=== PATIENT | female | born 1985 | race Caucasian/White ===

== ENCOUNTER 2016-12-22 07:46 | Day surgery (SDC) | payer OTHER ==
[2016-12-17 10:28] VITALS: BMI 35.4
[~2016-12-22 07:46] MED LIST: LACTATED RINGERS 1,000 ML IV SCH; LIDOCAINE 1% 20 ML VIAL (10MG/ML) FOR IV START INTRADERMA PRN
[2016-12-22 08:04] VITALS: RESP 16; TEMP 98.6
[2016-12-22] MEDS ORDERED: PROPOFOL 10 MG/ML 20 ML VIAL IV ONE (08:54)
[2016-12-22] MEDS ORDERED: LIDOCAINE 1% INJ 10MG/ML (20 ML MDV) ONE (08:54)
--- NOTE | 2016-12-22 09:37 | P.PCN ---
Date of Procedure: 12/22/16 Procedure(s) Performed: Procedure: 1. Esophagogastroduodenoscopy and biopsy. 2. Total colonoscopy. Preoperative diagnosis: Abdominal pain and change in bowel habits and family history of colon cancer in her father. Postoperative diagnosis: 1. Very small sliding hiatal hernia with no obvious esophagitis or complicated reflux disease. 2. Mild antral gastritis. 3. Normal colon and terminal ileum. Preparation: HalfLytely prep. Sedation: Was provided by anesthesia. Brief clinical history: The patient is a 51-year-old female who is scheduled for this evaluation because of issues with abdominal pain and postprandial pain and vomiting as well as change in bowels with constipation and hard time having bowel movements. There is family history of colon cancer in her father. Procedure: With the patient on her left lateral decubitus position and after informed consent and adequate sedation, I passed the Olympus-GIF 160 video upper endoscope through the cricopharyngeus down the esophagus. GE junction was around 39 cm from the incisors and was a very small sliding hiatal hernia less than 1 cm. There was no erosions, ulcers, strictures or Witt's esophagus. The endoscope was then passed into the stomach which was insufflated with air and inspected in detail including the retroflex view in the cardia. There was some mottling and erythema in the antrum but no ulcers or erosions. Pyloric channel, duodenal bulb, post bulbar area and descending duodenum appeared within normal limits. Because of her symptoms, I obtained biopsies from the duodenum, antrum and esophagus then the endoscope was withdrawn and I proceeded to do colonoscopy. Perianal area did not show any fissures or fistulas. There were no masses felt on digital rectal examination. The Olympus CFQ 160L video colonoscope was then inserted in the rectum in the usual fashion and advanced to the cecum. I intubated the ileocecal valve and examined the terminal ileum. Terminal ileum and colon appeared healthy with no edema, erythema, friability, ulceration, exudation or spontaneous bleeding. No polyps or tumors were seen or any obvious diverticular disease or other pathology. I retroflexed endoscope in the rectum before the endoscope was withdrawn. The patient tolerated the procedure well. Plan: The patient was reassured. Discussed dietary measures. Will await pathology results. She will follow-up with you as planned and further plans can be made based on her course and biopsy results.
[2016-12-22 10:18] VITALS: BP 101/61; PULSE 67
== END 2016-12-22 10:14 | disposition home or self-care (01) ==
LOC: ORWHC2ENDO 07:46
DX: K59.00 Constipation, unspecified (principal); Z80.0 Family history of malignant neoplasm of digestive organs; K21.0 Gastro-esophageal reflux disease with esophagitis; K29.50 Unspecified chronic gastritis without bleeding; K44.9 Diaphragmatic hernia without obstruction or gangrene; M19.90 Unspecified osteoarthritis, unspecified site; Z79.1 Long term (current) use of non-steroidal anti-inflammatories (NSAID); Z88.8 Allergy status to other drugs, medicaments and biological substances
CPT/HCPCS: 81025; 88305; 88342; 45378; 43239; J2001; J2704; 99153

== ENCOUNTER → 2017-04-10 | Outpatient (CLI) | payer OTHER ==
--- NOTE | 2017-04-10 10:58 | XR ---
EXAMINATION TYPE: XR Hip Bilateral Complete DATE OF EXAM: 04/10/2017 10:31 AM CLINICAL HISTORY: pain TECHNIQUE: AP and frogleg views of the bilateral hips are obtained. COMPARISON: None. FINDINGS: There is no acute fracture/dislocation evident. Small focus of sclerosis involving the ri ght ischium. This may reflect a bone island. Consider further evaluation with nuclear medicine bone s can. The joint space appears within normal limits. The overlying soft tissue appears unremarkable. IMPRESSION: 1. There is no acute fracture or dislocation. Focus of sclerosis right ischium. See above. ICD 10 NO FRACTURE, INITIAL EVALUATION
--- NOTE | 2017-04-10 11:28 | XR ---
EXAMINATION TYPE: XR sacroiliac joint comp BILAT DATE OF EXAM ORDERED: 04/10/2017 10:31 AM HISTORY: M25.559 hip pain. COMPARISON: None. FINDINGS: The sacroiliac joints are unremarkable. There is no significant sclerosis. There is no ero sions. There may be some minimal hypertrophic change bilaterally. IMPRESSION: NO ACUTE OSSEOUS LESION. I CANNOT EXCLUDE SOME EARLY DEGENERATIVE CHANGE.
== END | disposition home or self-care (01) ==
LOC: RADXRMAIN 10:14
PROVIDERS: ATTEND Psychiatry & Neurology Pain Medicine
DX: M89.8X8 Other specified disorders of bone, other site (principal); M25.559 Pain in unspecified hip
CPT/HCPCS: 72202; 73521

== ENCOUNTER 2017-04-29 08:37 | Emergency (ER) | payer OTHER ==
[2017-04-29 08:49] VITALS: RESP 18
[2017-04-29] MEDS ORDERED: KETOROLAC 30 MG/ML 1 ML VIAL IVP STA (09:07)
--- NOTE | 2017-04-29 09:10 | ED ---
Abdominal Pain HPI - General Chief Complaint: Abdominal Pain Stated Complaint: LOW ABDOMINAL PAIN, NAUSEA X 2 DAYS Time Seen by Provider: 04/29/17 08:56 Source: patient, RN notes reviewed Mode of arrival: ambulatory Limitations: no limitations - History of Present Illness Initial Comments: Patient 31-year-old female presents emergency room for evaluation of left lower quadrant pain. Patient states the pain began a few days ago. Patient does states she has history of ovarian cysts. Patient states that she has a history of right ovarian removal. Patient states pain is worse today. Patient states that 9 out of 10 constant pain that is worse with movement. Patient has any pain or burning during urination, trouble urinating or blood in urine. Patient denies history of STDs. Patient denies any chance of being . Patient also states she has history cholecystectomy. Patient denies any other history of abdominal surgeries. Patient states she's been nauseous. Patient denies vomiting, diarrhea or constipation. Patient denies fevers or chills. Patient denies headache or dizziness. Patient denies chest pain or shortness of breath. Patient states her last menstrual cycle was about a month ago. - Related Data Previous Rx's Medication Instructions Recorded Ibuprofen [Motrin] 600 mg PO Q6HR PRN #20 tab 04/29/17 Allergies Allergy/AdvReac Type Severity Reaction Status Date / Time adhesive tape Allergy Rash/Hives Verified 04/29/17 08:49 Review of Systems ROS Statement: Those systems with pertinent positive or pertinent negative responses have been documented in the HPI. ROS Other: All systems not noted in ROS Statement are negative. Past Medical History Past Medical History: GERD/Reflux, Osteoarthritis (OA) Additional Past Medical History / Comment(s): migraines, bowel obstruction, frequent UTI's, History of Any Multi-Drug Resistant Organisms: None Reported Past Surgical History: Cholecystectomy Additional Past Surgical History / Comment(s): oopherectomy Past Anesthesia/Blood Transfusion Reactions: No Reported Reaction Past Psychological History: No Psychological Hx Reported Smoking Status: Former smoker Past Alcohol Use History: None Reported Additional Past Alcohol Use History / Comment(s): quit smoking age 17, Past Drug Use History: None Reported - Past Family History Father Family Medical History: Cancer General Exam - General Exam Comments Initial Comments: Sitting in exam room, no acute distress. Limitations: no limitations General appearance: alert, in no apparent distress Head exam: Present: atraumatic, normocephalic, normal inspection Eye exam: Present: normal appearance ENT exam: Present: normal exam Neck exam: Present: normal inspection Respiratory exam: Present: normal lung sounds bilaterally. Absent: respiratory distress Cardiovascular Exam: Present: regular rate, normal rhythm, normal heart sounds GI/Abdominal exam: Present: soft, tenderness (Left lower quadrant), normal bowel sounds. Absent: distended, guarding, rebound, rigid Extremities exam: Present: normal inspection Back exam: Present: normal inspection Neurological exam: Present: alert, oriented X3, CN II-XII intact, normal gait Psychiatric exam: Present: normal affect, normal mood Skin exam: Present: warm, dry, intact, normal color. Absent: rash Course Vital Signs 04/29/17 04/29/17 08:45 12:33 Temperature 98.2 F 97.8 F Pulse Rate 64 59 L Respiratory 18 18 Rate Blood Pressure 118/77 96/51 O2 Sat by Pulse 100 100 Oximetry Medical Decision Making - Medical Decision Making Patient is a 31-year-old female presents to emergency room for evaluation of abdominal pain. Patient states symptoms are improved after medications. Ultrasound shows no abnormal findings. No finding of ovarian torsion or ovarian cyst. Advised patient to follow-up with MANUFACTURING PROCESS ENGINEER. Patient states she understands everything that was discussed with her. Return parameters discussed. Case discussed with Dr. Guzmán. - Lab Data Result diagrams: 04/29/17 09:18 04/29/17 09:18 Lab Results 04/29/17 04/29/17 04/29/17 Range/Units 09:18 09:18 09:20 WBC 5.2 (3.8-10.6) k/uL RBC 4.49 (3.80-5.40) m/uL Hgb 13.7 (11.4-16.0) gm/dL Hct 40.5 (34.0-46.0) % MCV 90.3 (80.0-100.0) fL MCH 30.6 (25.0-35.0) pg MCHC 33.9 (31.0-37.0) g/dL RDW 13.5 (11.5-15.5) % Plt Count 212 (150-450) k/uL Neutrophils % 65 % Lymphocytes % 27 % Monocytes % 6 % Eosinophils % 0 % Basophils % 0 % Neutrophils # 3.4 (1.3-7.7) k/uL Lymphocytes # 1.4 (1.0-4.8) k/uL Monocytes # 0.3 (0-1.0) k/uL Eosinophils # 0.0 (0-0.7) k/uL Basophils # 0.0 (0-0.2) k/uL Sodium 140 (137-145) mmol/L Potassium 4.5 (3.5-5.1) mmol/L Chloride 104 (98-107) mmol/L Carbon Dioxide 24 (22-30) mmol/L Anion Gap 12 mmol/L BUN 10 (7-17) mg/dL Creatinine 0.67 (0.52-1.04) mg/dL Est GFR (MDRD) Af Amer >60 (>60 ml/min/1.73 sqM) Est GFR (MDRD) Non-Af >60 (>60 ml/min/1.73 sqM) Glucose 92 (74-99) mg/dL Calcium 9.5 (8.4-10.2) mg/dL Total Bilirubin 0.6 (0.2-1.3) mg/dL AST 19 (14-36) U/L ALT 21 (9-52) U/L Alkaline Phosphatase 50 (38-126) U/L Total Protein 7.6 (6.3-8.2) g/dL Albumin 4.6 (3.5-5.0) g/dL Amylase 55 (30-110) U/L Lipase 117 (23-300) U/L Urine Color Light Yellow Urine Appearance Cloudy H (Clear) Urine pH 7.0 (5.0-8.0) Ur Specific [place] 1.011 (1.001-1.035) Urine Protein Negative (Negative) Urine Glucose (UA) Negative (Negative) Urine Ketones Negative (Negative) Urine Blood Negative (Negative) Urine Nitrite Negative (Negative) Urine Bilirubin Negative (Negative) Urine Urobilinogen <2.0 (<2.0) mg/dL Ur Leukocyte Esterase Negative (Negative) Urine WBC 1 (0-5) /hpf Ur Squamous Epith Cells 5 H (0-4) /hpf Urine HCG, Qual (Not Detectd) 04/29/17 Range/Units 09:20 WBC (3.8-10.6) k/uL RBC (3.80-5.40) m/uL Hgb (11.4-16.0) gm/dL Hct (34.0-46.0) % MCV (80.0-100.0) fL MCH (25.0-35.0) pg MCHC (31.0-37.0) g/dL RDW (11.5-15.5) % Plt Count (150-450) k/uL Neutrophils % % Lymphocytes % % Monocytes % % Eosinophils % % Basophils % % Neutrophils # (1.3-7.7) k/uL Lymphocytes # (1.0-4.8) k/uL Monocytes # (0-1.0) k/uL Eosinophils # (0-0.7) k/uL Basophils # (0-0.2) k/uL Sodium (137-145) mmol/L Potassium (3.5-5.1) mmol/L Chloride (98-107) mmol/L Carbon Dioxide (22-30) mmol/L Anion Gap mmol/L BUN (7-17) mg/dL Creatinine (0.52-1.04) mg/dL Est GFR (MDRD) Af Amer (>60 ml/min/1.73 sqM) Est GFR (MDRD) Non-Af (>60 ml/min/1.73 sqM) Glucose (74-99) mg/dL Calcium (8.4-10.2) mg/dL Total Bilirubin (0.2-1.3) mg/dL AST (14-36) U/L ALT (9-52) U/L Alkaline Phosphatase (38-126) U/L Total Protein (6.3-8.2) g/dL Albumin (3.5-5.0) g/dL Amylase (30-110) U/L Lipase (23-300) U/L Urine Color Urine Appearance (Clear) Urine pH (5.0-8.0) Ur Specific [place] (1.001-1.035) Urine Protein (Negative) Urine Glucose (UA) (Negative) Urine Ketones (Negative) Urine Blood (Negative) Urine Nitrite (Negative) Urine Bilirubin (Negative) Urine Urobilinogen (<2.0) mg/dL Ur Leukocyte Esterase (Negative) Urine WBC (0-5) /hpf Ur Squamous Epith Cells (0-4) /hpf Urine HCG, Qual Not Detected (Not Detectd) - Radiology Data Radiology results: report reviewed, image reviewed Disposition Clinical Impression: Abdominal pain Disposition: HOME SELF-CARE Condition: Good Instructions: Abdominal Pain (ED) Additional Instructions: Take ibuprofen as needed for pain. Please follow-up with MANUFACTURING PROCESS ENGINEER for further evaluation. If any new symptom arises or symptoms worsen, return to ER as soon as possible. Prescriptions: Ibuprofen [Motrin] 600 mg PO Q6HR PRN #20 tab PRN Reason: Pain Referrals: Marlyn Ramirez MD [Primary Care Provider] - 1-2 days Time of Disposition: 12:40
[2017-04-29 09:35] LABS: Basophils % (A) 0 %; CHCM 33.4; Eosinophils % (A) 0 %; HCT 40.5 % (34.0-46.0); HDW 2.74; HGB 13.7 gm/dL (11.4-16.0); Luc % (Auto) 2; Lymphocytes # (A) 1.4 k/uL (1.0-4.8); Lymphocytes % (A) 27 %; MCH 30.6 pg (25.0-35.0); MCHC 33.9 g/dL (31.0-37.0); MCV 90.3 fL (80.0-100.0); Mean Platelet Volume 6.5; Monocytes # (A) 0.3 k/uL (0-1.0); Monocytes % (A) 6 %; Neutrophils # (A) 3.4 k/uL (1.3-7.7); Neutrophils % (A) 65 %; RBC 4.49 m/uL (3.80-5.40); RDW 13.5 % (11.5-15.5); WBC 5.2 k/uL (3.8-10.6); WBC (Perox) 5.11
[2017-04-29 09:42] LABS: Appearance,Urine Cloudy (Clear); Bilirubin,Urine Negative (Negative); Glucose,Urine (UA) Negative (Negative); Ketones,Urine Negative (Negative); Leukocyte Esterase,Urine Negative (Negative); Nitrite,Urine Negative (Negative); Particle Count 2930; Protein,Urine Negative (Negative); Specific Gravity,Urine 1.011 (1.001-1.035); Squamous Epithelial Cell,Urine 5 /hpf (0-4); UA Billing (MACRO vs. MICRO) MICRO; Urobilinogen,Urine <2.0 mg/dL (<2.0); WBC,Urine 1 /hpf (0-5)
[2017-04-29 09:50] LABS: ALT 21 U/L (9-52); AST 19 U/L (14-36); Alkaline Phosphatase 50 U/L (38-126); Amylase 55 U/L (30-110); Anion Gap 12 mmol/L; Blood Urea Nitrogen 10 mg/dL (7-17); Calcium 9.5 mg/dL (8.4-10.2); Carbon Dioxide 24 mmol/L (22-30); Chloride 104 mmol/L (98-107); Glucose 92 mg/dL (74-99); Non-African American GFR(MDRD) >60 (>60 ml/min/1.73 sqM); Potassium 4.5 mmol/L (3.5-5.1); Sodium 140 mmol/L (137-145); Total Bilirubin 0.6 mg/dL (0.2-1.3); Total Protein 7.6 g/dL (6.3-8.2)
--- NOTE | 2017-04-29 11:36 | US ---
EXAMINATION TYPE: US transvaginal DATE OF EXAM: 04/29/2017 COMPARISON: 05/09/2014 CLINICAL HISTORY: LLQ Pain x 3 days. Patient reports right Oophorectomy TECHNIQUE: Transvaginal (TV) Date of LMP: 03/28/2017 EXAM MEASUREMENTS: Uterus: 7.6 x 4.2 x 6.6 cm Endometrial Stripe: 1.2 cm Right Ovary: Surgically absent Left Ovary: 4.9 x 2.7 x 3.4 cm 1. Uterus: Retroverted 2. Endometrium: small amount of fluid fundal endometrium 3. Right Ovary: Surgically absent 4. Left Ovary: follicles Spectral, color and waveform doppler imaging shows good arterial and venous flow within the left ov daniele; there is no evidence for ovarian torsion. 5. Bilateral Adnexa: wnl 6. Posterior cul-de-sac: no free fluid retroverted uterus with small amount of fluid in fundal endometrium, IMPRESSION: 1. Small amount of fluid in the endometrial canal near the fundus.
[2017-04-29 12:34] VITALS: BP 96/51; PULSE 59; TEMP 97.8
--- NOTE | 2017-04-29 15:58 | XR ---
EXAMINATION TYPE: XR KUB DATE OF EXAM: 04/29/2017 COMPARISON: NONE INDICATION: Pain lower abdomen TECHNIQUE: Single view abdomen upright position FINDINGS: There is a normal bowel gas pattern. Psoas margins are normal. No organomegaly is present. No free air is evident. No suspicious differential air-fluid levels are present. No mass effect is ev ident. Cholecystectomy clips are in the right upper quadrant. IMPRESSION: 1. Unremarkable Abdomen
== END 2017-04-29 13:11 | disposition home or self-care (01) ==
LOC: EC 08:37
DX: R10.32 Left lower quadrant pain (principal); R11.0 Nausea; K21.9 Gastro-esophageal reflux disease without esophagitis; Z87.891 Personal history of nicotine dependence; Z91.048 Other nonmedicinal substance allergy status; Z90.49 Acquired absence of other specified parts of digestive tract
CPT/HCPCS: 36415; 80053; 82150; 83690; 85025; 81001; 81025; 74000; 93976; 76830; 99284; 96374; J1885

== ENCOUNTER 2017-06-24 17:30 | Emergency (ER) | payer OTHER ==
[2017-06-24 18:00] LABS: Amorphous Sediment,Urine Occasional /hpf; Appearance,Urine Cloudy (Clear); Bacteria,Urine Occasional /hpf; Bilirubin,Urine Negative (Negative); Glucose,Urine (UA) Negative (Negative); Ketones,Urine 1+ (Negative); Leukocyte Esterase,Urine Negative (Negative); Mucus,Urine Many /hpf; Nitrite,Urine Negative (Negative); PH, Urine 5.5 (5.0-8.0); Particle Count 22403; Protein,Urine 1+ (Negative); RBC,Urine 3 /hpf (0-5); Specific Gravity,Urine 1.025 (1.001-1.035); Squamous Epithelial Cell,Urine 61 /hpf (0-4); UA Billing (MACRO vs. MICRO) MICRO; Urobilinogen,Urine <2.0 mg/dL (<2.0); WBC,Urine 12 /hpf (0-5)
[2017-06-24] MEDS ORDERED: ACETAMINOPHEN TAB 325 MG TAB PO STA (18:05)
[2017-06-24] MEDS ORDERED: METOCLOPRAMIDE 5 MG/ML 2 ML VIAL IVP STA (18:06)
[2017-06-24] MEDS ORDERED: SODIUM CHLORIDE 0.9% 1,000 ML IV ONE (18:06)
--- NOTE | 2017-06-24 18:09 | ED ---
Abdominal Pain HPI - General Chief Complaint: Abdominal Pain Stated Complaint: ABDOMINAL PAIN Time Seen by Provider: 06/24/17 17:40 Source: patient, RN notes reviewed Mode of arrival: ambulatory Limitations: no limitations - History of Present Illness Initial Comments: Patient is a 31-year-old female presents to the emergency room for evaluation left lower quadrant pain. Patient states she's been nauseous every morning and developing left lower quadrant pain for the past week and a half. Patient states her last menstrual cycle was 05/14/2017. patient states she is . Patient states she has a history cholecystectomy and right nephrectomy. Patient states she had a right nephrectomy for large ovarian cyst. Patient denies history of ectopic pregnancies or miscarriages. Patient denies smoking. Patient denies taking oral contraceptives. Patient states she's having 6 out of 10 pain. Patient denies taking anything for pain. Patient states she's having minor burning while urinating. Patient denies vaginal itching or discomfort. Patient denies history of STDs. Patient denies vaginal bleeding. Patient denies chest pain or hortness of breath. Patient denies fevers or chills. Patient denies headache or dizziness. - Related Data Home Medications Medication Instructions Recorded Confirmed Pnv,Calcium 72/Iron/Folic Acid 1 tab PO DAILY 06/24/17 06/24/17 [ Plus Tablet] Allergies Allergy/AdvReac Type Severity Reaction Status Date / Time adhesive tape Allergy Rash/Hives Verified 06/24/17 19:19 Review of Systems ROS Statement: Those systems with pertinent positive or pertinent negative responses have been documented in the HPI. ROS Other: All systems not noted in ROS Statement are negative. Past Medical History Past Medical History: GERD/Reflux, Osteoarthritis (OA) Additional Past Medical History / Comment(s): migraines, bowel obstruction, frequent UTI's, History of Any Multi-Drug Resistant Organisms: None Reported Past Surgical History: Cholecystectomy Additional Past Surgical History / Comment(s): right oopherectomy Past Anesthesia/Blood Transfusion Reactions: No Reported Reaction Past Psychological History: No Psychological Hx Reported Smoking Status: Former smoker Past Alcohol Use History: None Reported Past Drug Use History: None Reported - Past Family History Father Family Medical History: Cancer General Exam - General Exam Comments Initial Comments: laying in exam room, no acute distress. Limitations: no limitations General appearance: alert, in no apparent distress Head exam: Present: atraumatic, normocephalic, normal inspection Eye exam: Present: normal appearance ENT exam: Present: normal exam Neck exam: Present: normal inspection Respiratory exam: Present: normal lung sounds bilaterally. Absent: respiratory distress Cardiovascular Exam: Present: regular rate, normal rhythm, normal heart sounds GI/Abdominal exam: Present: soft, tenderness (LLQ), normal bowel sounds. Absent : distended, guarding, rebound, rigid External exam: Present: normal external exam Speculum exam: Present: vaginal discharge By manual exam: Present: normal by manual exam. Absent: cervical motion tenderness, adnexal tenderness Extremities exam: Present: normal inspection Back exam: Present: normal inspection Neurological exam: Present: alert, oriented X3, CN II-XII intact, normal gait Psychiatric exam: Present: normal affect, normal mood Skin exam: Present: warm, dry, intact, normal color. Absent: rash Course Vital Signs 06/24/17 06/24/17 17:33 20:14 Temperature 99.1 F 98.7 F Pulse Rate 81 76 Respiratory 18 19 Rate Blood Pressure 127/71 121/56 O2 Sat by Pulse 98 99 Oximetry Medical Decision Making - Medical Decision Making Patient is a 31-year-old female presents to the emergency room for evaluation of abdominal pain. Urinalysis positive for . Ultrasound significant for early . Patient has no vaginal bleeding on examination. Patient advised to return for repeat serum beta-hCG. Patient advised follow-up with OB/ RESPIRATORY THERAPY DIRECTOR. Patient states she understands everything that was discussed with her. Return parameters discussed. Case discussed with Dr. Guzmán. - Lab Data Result diagrams: 06/24/17 18:20 06/24/17 18:20 Lab Results 06/24/17 06/24/17 06/24/17 Range/Units 17:37 17:37 18:20 WBC (3.8-10.6) k/uL RBC (3.80-5.40) m/uL Hgb (11.4-16.0) gm/dL Hct (34.0-46.0) % MCV (80.0-100.0) fL MCH (25.0-35.0) pg MCHC (31.0-37.0) g/dL RDW (11.5-15.5) % Plt Count (150-450) k/uL Neutrophils % % Lymphocytes % % Monocytes % % Eosinophils % % Basophils % % Neutrophils # (1.3-7.7) k/uL Lymphocytes # (1.0-4.8) k/uL Monocytes # (0-1.0) k/uL Eosinophils # (0-0.7) k/uL Basophils # (0-0.2) k/uL Sodium (137-145) mmol/L Potassium (3.5-5.1) mmol/L Chloride (98-107) mmol/L Carbon Dioxide (22-30) mmol/L Anion Gap mmol/L BUN (7-17) mg/dL Creatinine (0.52-1.04) mg/dL Est GFR (MDRD) Af Amer (>60 ml/min/1.73 sqM) Est GFR (MDRD) Non-Af (>60 ml/min/1.73 sqM) Glucose (74-99) mg/dL Calcium (8.4-10.2) mg/dL Total Bilirubin (0.2-1.3) mg/dL AST (14-36) U/L ALT (9-52) U/L Alkaline Phosphatase (38-126) U/L Total Protein (6.3-8.2) g/dL Albumin (3.5-5.0) g/dL HCG, Quant mIU/mL Urine Color Yellow Urine Appearance Cloudy H (Clear) Urine pH 5.5 (5.0-8.0) Ur Specific [place] 1.025 (1.001-1.035) Urine Protein 1+ H (Negative) Urine Glucose (UA) Negative (Negative) Urine Ketones 1+ H (Negative) Urine Blood Negative (Negative) Urine Nitrite Negative (Negative) Urine Bilirubin Negative (Negative) Urine Urobilinogen <2.0 (<2.0) mg/dL Ur Leukocyte Esterase Negative (Negative) Urine RBC 3 (0-5) /hpf Urine WBC 12 H (0-5) /hpf Ur Squamous Epith Cells 61 H (0-4) /hpf Amorphous Sediment Occasional H (None) /hpf Urine Bacteria Occasional H (None) /hpf Urine Mucus Many H (None) /hpf Urine HCG, Qual Detected (Not Detectd) Trichomonas Ag (Rapid) (Negative) Blood Type B Positive Blood Type Recheck B Pos 06/24/17 06/24/17 06/24/17 Range/Units 18:20 18:20 18:35 WBC 7.0 (3.8-10.6) k/uL RBC 4.32 (3.80-5.40) m/uL Hgb 13.0 (11.4-16.0) gm/dL Hct 38.3 (34.0-46.0) % MCV 88.8 (80.0-100.0) fL MCH 30.2 (25.0-35.0) pg MCHC 34.0 (31.0-37.0) g/dL RDW 13.9 (11.5-15.5) % Plt Count 262 (150-450) k/uL Neutrophils % 73 % Lymphocytes % 21 % Monocytes % 4 % Eosinophils % 0 % Basophils % 0 % Neutrophils # 5.1 (1.3-7.7) k/uL Lymphocytes # 1.5 (1.0-4.8) k/uL Monocytes # 0.3 (0-1.0) k/uL Eosinophils # 0.0 (0-0.7) k/uL Basophils # 0.0 (0-0.2) k/uL Sodium 140 (137-145) mmol/L Potassium 3.9 (3.5-5.1) mmol/L Chloride 105 (98-107) mmol/L Carbon Dioxide 24 (22-30) mmol/L Anion Gap 11 mmol/L BUN 9 (7-17) mg/dL Creatinine 0.57 (0.52-1.04) mg/dL Est GFR (MDRD) Af Amer >60 (>60 ml/min/1.73 sqM) Est GFR (MDRD) Non-Af >60 (>60 ml/min/1.73 sqM) Glucose 109 H (74-99) mg/dL Calcium 9.2 (8.4-10.2) mg/dL Total Bilirubin 0.6 (0.2-1.3) mg/dL AST 22 (14-36) U/L ALT 34 (9-52) U/L Alkaline Phosphatase 42 (38-126) U/L Total Protein 7.1 (6.3-8.2) g/dL Albumin 4.3 (3.5-5.0) g/dL HCG, Quant 1129.3 mIU/mL Urine Color Urine Appearance (Clear) Urine pH (5.0-8.0) Ur Specific [place] (1.001-1.035) Urine Protein (Negative) Urine Glucose (UA) (Negative) Urine Ketones (Negative) Urine Blood (Negative) Urine Nitrite (Negative) Urine Bilirubin (Negative) Urine Urobilinogen (<2.0) mg/dL Ur Leukocyte Esterase (Negative) Urine RBC (0-5) /hpf Urine WBC (0-5) /hpf Ur Squamous Epith Cells (0-4) /hpf Amorphous Sediment (None) /hpf Urine Bacteria (None) /hpf Urine Mucus (None) /hpf Urine HCG, Qual (Not Detectd) Trichomonas Ag (Rapid) Negative (Negative) Blood Type Blood Type Recheck - Radiology Data Radiology results: report reviewed, image reviewed Disposition Clinical Impression: Abdominal pain affecting Disposition: HOME SELF-CARE Condition: Good Instructions: Abdominal Pain in (ED) Additional Instructions: Please return in 48 hours for repeat serum beta hCG lab draw. Please follow-up with CAREER DEVELOPMENT ENGINEER. If any new symptom arises or symptoms worsen, return to ER as soon as possible. Referrals: Marlyn Ramirez MD [Primary Care Provider] - 1-2 days Azul Edmond DO [Doctor of Osteopathic Medicine] - 1-2 days Time of Disposition: 19:55
[2017-06-24 18:28] LABS: Basophils % (A) 0 %; CH 30.4; CHCM 34.4; Eosinophils % (A) 0 %; HCT 38.3 % (34.0-46.0); HDW 2.87; Luc # (Auto) 0.11; Luc % (Auto) 2; Lymphocytes # (A) 1.5 k/uL (1.0-4.8); Lymphocytes % (A) 21 %; MCH 30.2 pg (25.0-35.0); MCV 88.8 fL (80.0-100.0); Mean Platelet Volume 6.8; Monocytes # (A) 0.3 k/uL (0-1.0); Monocytes % (A) 4 %; Neutrophils # (A) 5.1 k/uL (1.3-7.7); Neutrophils % (A) 73 %; RBC 4.32 m/uL (3.80-5.40); RDW 13.9 % (11.5-15.5); WBC (Perox) 7.15
[2017-06-24 18:52] LABS: ALT 34 U/L (9-52); AST 22 U/L (14-36); Alkaline Phosphatase 42 U/L (38-126); Anion Gap 11 mmol/L; Blood Urea Nitrogen 9 mg/dL (7-17); Calcium 9.2 mg/dL (8.4-10.2); Carbon Dioxide 24 mmol/L (22-30); Chloride 105 mmol/L (98-107); Glucose 109 mg/dL (74-99); Non-African American GFR(MDRD) >60 (>60 ml/min/1.73 sqM); Potassium 3.9 mmol/L (3.5-5.1); Sodium 140 mmol/L (137-145); Total Bilirubin 0.6 mg/dL (0.2-1.3); Total Protein 7.1 g/dL (6.3-8.2)
--- NOTE | 2017-06-24 19:01 | US ---
EXAMINATION TYPE: US OB <=14 wks transvag DATE OF EXAM: 06/24/2017 COMPARISON: NONE CLINICAL HISTORY: LLQ Pain. EXAM PERFORMED: Transvaginal (TV) and Transabdominal (TA) EXAM MEASUREMENTS: GESTATIONAL AGE / DATING Physician Established: Not established Dates by LMP: (5 weeks/6 days) EDC: 02/18/2018 Dates by First Scan: No previous Dates by Current Scan for: No pole or yolk sac visualized MATERNAL ANATOMY Uterus: 7.3 x 4.5 x 5.8 cm Right Ovary: Surgically absent Left Ovary: 4.0 x 2.3 x 2.7 cm Post CDS / Adnexa: Prominent vessels visualized in right adnexa Presence of free fluid: Yes Presence of corpus luteal cyst: Possible corpus luteal cyst on left ovary measuring 2.3 x 2.2 x 1.3 c m Presence of subchorionic bleed: No GESTATION / SURVEY MSD: 1.51 cm (5 weeks/6 days) Yolk Sac (normal less than 6mm): No yolk sac visualized on this exam IUP: No pole or yolk sac seen at this time Date of LMP: 05/14/2017 Beta HcG (if available): Not available at time of exam No pole or yolk sac visualized on today's exam. Only irregular shaped fluid collection visualiz ed within the endometrium measuring 1.3 x 1.0 x 2.2 cm. Possible corpus luteal cyst vs other etiology visualized on left ovary IMPRESSION: Findings may reflect normal early IUP however I cannot exclude ectopic , missed spontaneous or blighted ovum. Follow-up with serial beta hCG and/or ultrasound.
[2017-06-24 19:08] LABS: HCG,Quantitative Serum 1129.3 mIU/mL
[2017-06-24 20:15] VITALS: BP 121/56; PULSE 76; RESP 19; TEMP 98.7
== END 2017-06-24 20:16 | disposition home or self-care (01) ==
LOC: EC 17:30
DX: O99.89 Other specified diseases and conditions complicating pregnancy, childbirth and the puerperium (principal); R10.32 Left lower quadrant pain; R11.0 Nausea; Z3A.01 Less than 8 weeks gestation of pregnancy; Z90.49 Acquired absence of other specified parts of digestive tract; Z90.5 Acquired absence of kidney; Z91.048 Other nonmedicinal substance allergy status; Z79.899 Other long term (current) drug therapy; Z87.891 Personal history of nicotine dependence
CPT/HCPCS: 99284; 96374; 96361 ×2; 36415; 86900; 86901; 80053; 87591; 87491; 85025; 81001; 81025; 84702; 87808; 87070; 76801; 76817; J2765; 87205

== ENCOUNTER 2017-11-21 01:24 | Outpatient (CLI) | payer OTHER ==
[2017-11-21] MEDS ORDERED: ONDANSETRON 4 MG/2 ML VIAL IVP STA (02:05)
[2017-11-21] MEDS ORDERED: LACTATED RINGERS 1,000 ML IV SCH (02:15)
--- NOTE | 2018-02-12 09:10 | P.MSEPDOC ---
Presenting Problems - Arrival Data Date of Arrival on Unit: 11/21/17 Time of Arrival on Unit: 01:24 Mode of Transport: Wheelchair Medical History - Information : 5 Para: 4 Term: 4 : 0 Abortions: Spontaneous or Elective: 0 Number of Living Children: 4 - Gestational Age Gestational Age by SEBLE (wks/days): 26 Weeks and 3 Days Medical Screen Scoring (Post) - Cervical Exam Dilation: Exam Deferred Effacement: Exam Deferred Membranes: Intact - Uterine Contractions Frequency: N/A Duration: N/A Intensity: N/A - Maternal Vital Signs Maternal Temperature: N/A Maternal Blood Pressure: N/A Signs of Preeclampsia: N/A Maternal Respirations: N/A - Pain Assessment Pain Location and Character: Abdomen Pain Scale Used: Numeric (1 - 10) Pain Intensity: 3 Pain Management Goal: 3 Pain Description: *Acute, Tightness Pain Radiation Location: none Pain Frequency: Intermittent Pain Behavior: None Exhibited Effects of Pain: na Non-Pharmacological Interventions: Distraction - Maternal Trauma Maternal Trauma: N/A - Assessment Heart Rate: 145 Heart Rate - NICHD Category: Category I (Normal) = 0 NST: Reactive Position: N/A Station: N/A - Total Score Total Score (Post): 0 - Post Treatment Level of Risk Post Treatment Level of Risk: Low (0-5) Physician Notification (Post) - Physician Notified Physician Notified Date: 11/21/17 Physician Notified Time: 03:53 Physician/Practitioner Notified:: Dr. Edmond Spoke With: Dr. Edmond New Order Received: Yes - Notification Comment Comment: Updated Dr. Edmond on maternal status- pt feeling better and pain in abdomen has decreased, pt not nauseated anymore. Orders for discharge given. Disposition - Disposition OB Disposition: Discharge to home Discharge Date: 11/21/17 Discharge Time: 04:05 I agree with the RN Medical Screening Exam: Yes Risk & Benefit of care provided described in d/c instruction: Yes Diagnosis: UNSPECIFIED ABDOMINAL PAIN
== END 2017-11-21 04:05 | disposition home or self-care (01) ==
LOC: FBPOP 01:24
PROVIDERS: ATTEND Obstetrics & Gynecology Obstetrics
DX: O99.89 Other specified diseases and conditions complicating pregnancy, childbirth and the puerperium (principal); R10.9 Unspecified abdominal pain; Z3A.26 26 weeks gestation of pregnancy
CPT/HCPCS: 96361; 96374; G0463; J2405; 99214

== ENCOUNTER 2017-12-07 20:41 | Outpatient (CLI) | payer OTHER ==
[2017-12-07 21:32] VITALS: BP 111/64; PULSE 80; RESP 18; TEMP 97.2
--- NOTE | 2018-02-22 09:39 | P.MSEPDOC ---
Presenting Problems - Arrival Data Date of Arrival on Unit: 12/07/17 Time of Arrival on Unit: 20:41 Mode of Transport: Wheelchair Medical History - Information : 5 Para: 4 Term: 4 : 0 Abortions: Spontaneous or Elective: 0 Number of Living Children: 4 - Gestational Age Gestational Age by SEBLE (wks/days): 28 Weeks and 2 Days Vital Signs - Temperature Temperature: 97.2 F Temperature Source: Temporal Artery Scan - Pulse Right Pulse Oximetery Pulse Rate: 80 Pulse Assessment Method: Pulse Oximetry - Respirations Respiratory Rate: 18 Oxygen Delivery Method: Room Air O2 Sat by Pulse Oximetry: 98 - Blood Pressure Right Arm Blood Pressure: 111/64 Blood Pressure Mean: 79 Blood Pressure Source: Automatic Cuff Medical Screen Scoring (Post) - Cervical Exam Dilation: 0 cm = 0 Membranes: Intact - Uterine Contractions Frequency: N/A Duration: N/A Intensity: N/A - Maternal Vital Signs Maternal Temperature: N/A Maternal Blood Pressure: N/A Signs of Preeclampsia: N/A Maternal Respirations: N/A - Pain Assessment Pain Location and Character: Abdomen Pain Scale Used: Numeric (1 - 10) Pain Intensity: 3 Pain Management Goal: 2 Pain Description: *Acute, Aching, Cramping, Tightness Pain Radiation Location: none Pain Frequency: Intermittent Pain Duration: 10 Pain Duration Units: Hours Pain Behavior: Vocalization Effects of Pain: none Pain Aggravating Factors: None Pharmacological Interventions: Discuss Pain Med Options Non-Pharmacological Interventions: Reduce Environmental Stimuli - Maternal Trauma Maternal Trauma: N/A - Assessment Heart Rate: 140 Heart Rate - NICHD Category: Category I (Normal) = 0 NST: Reactive Position: N/A Station: N/A - Total Score Total Score (Post): 0 - Post Treatment Level of Risk Post Treatment Level of Risk: Low (0-5) Physician Notification (Post) - Physician Notified Physician Notified Date: 12/07/17 Physician Notified Time: 21:10 Physician/Practitioner Notified:: Feli Spoke With: Feli New Order Received: Yes - Notification Comment Comment: Pt arrived for abdominal pain cramping, tightening, and aching, had intercourse yesterday and some spotting afterwards, cervix closed, no contractions per TOCO or palpation. Pt discharge don pelvic rest and to increase fluids. Disposition - Disposition OB Disposition: Discharge to home Discharge Date: 12/07/17 Discharge Time: 21:24 I agree with the RN Medical Screening Exam: Yes Risk & Benefit of care provided described in d/c instruction: Yes Diagnosis: FALSE LABOR BEFORE 37 COMPLETED WEEKS OF GEST, THIRD TRI
== END 2017-12-07 21:24 | disposition home or self-care (01) ==
LOC: FBPOP 20:41
PROVIDERS: ATTEND Obstetrics & Gynecology Obstetrics
DX: O47.03 False labor before 37 completed weeks of gestation, third trimester (principal); Z3A.28 28 weeks gestation of pregnancy
CPT/HCPCS: 59025; G0463; 99213

== ENCOUNTER 2018-02-05 08:11 | Outpatient (CLI) | payer OTHER ==
[2018-02-05 09:26] VITALS: BP 116/76; PULSE 83; RESP 18; TEMP 97.6
--- NOTE | 2018-02-16 16:48 | P.MSEPDOC ---
Presenting Problems - Arrival Data Date of Arrival on Unit: 02/05/18 Time of Arrival on Unit: 08:25 Mode of Transport: Ambulatory - Complaint OB-Reason for Admission/Chief Complaint: Possible Onset of Labor Comment: C/O increased pressure in pelvic area Medical History - Information : 5 Para: 4 Term: 4 : 0 Abortions: Spontaneous or Elective: 0 Number of Living Children: 4 - Gestational Age Gestational Age by SEBLE (wks/days): 36 Weeks and 6 Days - History Complications: Prior Review of Systems - Review of Systems Constitutional: No problems Breast: No problems ENT: No problems Cardiovascular: No problems Respiratory: No problems Gastrointestinal: No problems Genitourinary: No problems Musculoskeletal: No problems Neurological: No problems Skin: No problems Vital Signs - Temperature Temperature: 97.6 F Temperature Source: Temporal Artery Scan - Pulse Right Brachial Pulse Rate: 83 Pulse Assessment Method: Automatic Cuff - Respirations Respiratory Rate: 18 Oxygen Delivery Method: Room Air O2 Sat by Pulse Oximetry: 95 - Blood Pressure Right Arm Blood Pressure: 116/76 Blood Pressure Mean: 89 Blood Pressure Source: Automatic Cuff Medical Screen Scoring (Pre) - Cervical Exam Dilation: 1-3 cm = 1 - Uterine Contractions Frequency: > or = 36 weeks =2 Duration: N/A Intensity: N/A - Maternal Vital Signs Maternal Temperature: N/A Maternal Blood Pressure: N/A Signs of Preeclampsia: N/A Maternal Respirations: N/A - Pain Assessment Pain Scale Used: Numeric (1 - 10) Pain Intensity: 8 Pain Management Goal: 6 Pain Description: *Acute, Cramping, Pressure Pain Frequency: Intermittent Pain Duration: 6 Pain Duration Units: Minutes Pain Behavior: None Exhibited Pain Aggravating Factors: None - Maternal Trauma Maternal Trauma: N/A - Assessment Baseline FHR: 140 Heart Rate - NICHD Category: Category I (Normal) = 0 NST: Reactive Position: N/A Station: N/A - Total Score Total Score (Pre): 3 - Level of Risk Level of Risk: Low (0-5) Physician Notification (Pre) - Physician Notified Physician Notified Date: 02/05/18 Physician Notified Time: 09:00 Physician/Practitioner Notifed:: Feli Spoke With: Feli New Order Received: Yes - Notification Comment Comment: Observe patient for 1 hour, hydrate and recheck cervix. Medical Screen Scoring (Post) - Cervical Exam Dilation: 1-3 cm = 1 Membranes: Intact - Uterine Contractions Frequency: > 5 minutes apart = 1 Duration: N/A - Maternal Vital Signs Maternal Temperature: N/A Maternal Blood Pressure: N/A Signs of Preeclampsia: N/A Maternal Respirations: N/A - Maternal Trauma Maternal Trauma: N/A - Assessment Heart Rate: 135 Heart Rate - NICHD Category: Category I (Normal) = 0 NST: Reactive Position: N/A Station: N/A - Total Score Total Score (Post): 2 - Post Treatment Level of Risk Post Treatment Level of Risk: Low (0-5) Physician Notification (Post) - Notification Comment Comment: pt home with orders if no cervical change Disposition - Disposition OB Disposition: Discharge to home Discharge Date: 02/05/18 Discharge Time: 10:05 I agree with the RN Medical Screening Exam: Yes Risk & Benefit of care provided described in d/c instruction: Yes Diagnosis: FALSE LABOR AT OR AFTER 37 COMPLETED WEEKS OF GESTATION
== END 2018-02-05 10:05 | disposition home or self-care (01) ==
LOC: FBPOP 08:11
PROVIDERS: ATTEND Obstetrics & Gynecology Obstetrics
DX: O47.1 False labor at or after 37 completed weeks of gestation (principal); Z3A.36 36 weeks gestation of pregnancy
CPT/HCPCS: 59025; G0463; 99213

== ENCOUNTER 2018-02-16 08:12 | Inpatient (IN) | payer OTHER ==
[2018-02-16] MEDS ORDERED: LACTATED RINGERS 1,000 ML IV SCH (10:15)
[2018-02-16] MEDS ORDERED: CITRIC ACID-SODIUM CITRATE 15 ML CUP PO ONE (10:15)
[2018-02-16] MEDS ORDERED: ceFAZolin IN SWFI 2 GM/20 ML SYRINGE IVP ONE (10:15)
--- NOTE | 2018-02-16 10:28 | P.HPOB ---
History of Present Illness H&P Date: 02/16/18 Chief Complaint: IUP @ 39 5/7 weeks active HSV outbreak, undesred fertility This 32 yo at 39%/7 weeks that presents to labor and delivery with c/o contractions q 20mins and pressure. she did tell the nurse that she had an HSV outbreak 2 weeks ago and d/c her valtrex at that time. she now feels like she may be having another outbreak today. she denies LOF, VB and notes good FM. On bloodwork she has a blood type of Past Medical History Past Medical History: GERD/Reflux, Osteoarthritis (OA) Additional Past Medical History / Comment(s): migraines, bowel obstruction, frequent UTI's, History of Any Multi-Drug Resistant Organisms: None Reported Past Surgical History: Cholecystectomy Additional Past Surgical History / Comment(s): right oopherectomy Past Anesthesia/Blood Transfusion Reactions: No Reported Reaction Smoking Status: Never smoker - Past Family History Father Family Medical History: Cancer Medications and Allergies Home Medications Medication Instructions Recorded Confirmed Type No Known Home Medications [No 12/07/17 02/16/18 History Known Home Medications] Allergies Allergy/AdvReac Type Severity Reaction Status Date / Time adhesive tape Allergy Rash/Hives Verified 11/21/17 01:33 Exam Osteopathic Statement: *. No significant issues noted on an osteopathic structural exam other than those noted in the History and Physical/Consult. - Vital Signs Vital signs: Vital Signs Temp Pulse Resp BP Pulse Ox 02/16/18 08:32 97.0 F L 94 18 114/72 97 Intake and Output 02/15/18 02/16/18 02/16/18 22:59 06:59 14:59 Other: Weight 111.13 kg Assessment and Plan (1) Term Current Visit: Yes Status: Acute Code(s): Z34.80 - ENCOUNTER FOR SUPRVSN OF NORMAL , UNSP TRIMESTER SNOMED Code(s): 96952797 (2) HSV (herpes simplex virus) anogenital infection Narrative/Plan: will plan RCS given her active outbreak, this is discussed with the pt. questions are answered, risks reviewed Current Visit: Yes Status: Acute Code(s): A60.9 - ANOGENITAL HERPESVIRAL INFECTION, UNSPECIFIED SNOMED Code(s): 821128029 (3) H/O section Current Visit: Yes Status: Acute Code(s): Z98.891 - HISTORY OF UTERINE SCAR FROM PREVIOUS SURGERY SNOMED Code(s): 200024708
[2018-02-16 10:47] LABS: Basophils % (A) 0 %; Eosinophils % (A) 0 %; HCT 38.2 % (34.0-46.0); HGB 12.7 gm/dL (11.4-16.0); Lymphocytes # (A) 1.7 k/uL (1.0-4.8); Lymphocytes % (A) 20 %; MCH 29.5 pg (25.0-35.0); MCHC 33.2 g/dL (31.0-37.0); MCV 89.1 fL (80.0-100.0); Mean Platelet Volume 7.6; Monocytes # (A) 0.6 k/uL (0-1.0); Monocytes % (A) 8 %; Neutrophils # (A) 5.6 k/uL (1.3-7.7); Neutrophils % (A) 69 %; Platelet Count 223 k/uL (150-450); RBC 4.29 m/uL (3.80-5.40); RDW 13.8 % (11.5-15.5); WBC 8.2 k/uL (3.8-10.6)
[2018-02-16] MEDS ORDERED: ONDANSETRON 4 MG/2 ML VIAL ONE (11:13)
[2018-02-16] MEDS ORDERED: ePHEDrine SULFATE/0.9% NACL/PF 50 MG/5 ML SYRINGE IV ONE (11:13)
[2018-02-16] MEDS ORDERED: OXYTOCIN 10 UNIT/ML 1 ML VIAL ONE (11:13)
[2018-02-16] MEDS ORDERED: NALBUPHINE 10 MG/ML AMPUL ONE (11:13)
[2018-02-16] MEDS ORDERED: MORPHINE SULFATE (PF) 0.3 MG/0.3 ML SYR ONE (11:13)
[2018-02-16] MEDS ORDERED: KETOROLAC 30 MG/ML 1 ML VIAL ONE (11:13)
[2018-02-16 11:42] VITALS: BMI 36.6
[2018-02-16] MEDS ORDERED: ZOLPIDEM 5 MG TAB PO PRN (12:01)
[2018-02-16] MEDS ORDERED: diphenhydrAMINE 50 MG/ML 1 ML VIAL IVP PRN ×2 (12:01→12:39)
[2018-02-16] MEDS ORDERED: METOCLOPRAMIDE 5 MG/ML 2 ML VIAL IVP PRN (12:01)
[2018-02-16] MEDS ORDERED: ONDANSETRON 4 MG/2 ML VIAL IVP PRN ×2 (12:01→12:39)
[2018-02-16] MEDS ORDERED: NALOXONE 0.4 MG/ML 1 ML VIAL IV PRN ×2 (12:01→12:39)
[2018-02-16] MEDS ORDERED: ACETAMINOPHEN TAB 325 MG TAB PO PRN (12:01)
[2018-02-16] MEDS ORDERED: diphenhydrAMINE 25 MG CAP PO PRN (12:01)
[2018-02-16] MEDS ORDERED: ACETAMINOPHEN IV (For NPO) 1,000 MG in EMPTY BAG 1 BAG IVPB ONE (12:01)
[2018-02-16] MEDS ORDERED: Acetaminophen-Codeine 300-30mg TAB PO PRN (12:01)
[2018-02-16] MEDS ORDERED: diphenhydrAMINE 50 MG CAP PO PRN (12:01)
--- NOTE | 2018-02-16 12:01 | P.OP ---
Date of Procedure: 02/16/18 Preoperative Diagnosis: IUP at 39-5/7 weeks, active HSV outbreak, history of 1 Postoperative Diagnosis: Same Procedure(s) Performed: Repeat section with left tubal ligation right tube prior to removal Anesthesia: spinal Surgeon: Azul Edmond Zipper Measurer #1: Albaro Cheung Estimated Blood Loss (ml): 400 IV fluids (ml): 1,300 Urine output (ml): 200 Pathology: other (Placenta, left segment of fallopian tube) Condition: stable Disposition: PACU Indications for Procedure: Active HSV outbreak Operative Findings: Right fallopian tube noted to be surgically removed prior, normal uterus tubes and ovaries were appreciated Description of Procedure: The patient was prepped and draped in the usual fashion after spinal anesthesia was administered anesthesia. A Pfannenstiel incision was made and extended of the abdominal cavity without difficulty. The bladder peritoneum was elevated and incised and reflected distally. A 2 cm incision was made in the transverse plane of the lower uterine segment to enter the uterus at which time clear fluid was noted. The incision was extended in both directions blunyly. The head was encountered within the field and delivered up and through the incision where the nose and mouth were thoroughly suctioned. Remainder of the was delivered onto the surgical field where the cord was doubly clamped, cut, and the infant was passed for resuscitative measures with weight and Apgars as noted above. A segment of cord was then doubly clamped, cut, and set aside should cord gases become necessary. The placenta was delivered manually, intact, and was grossly normal with a grossly normal three-vessel cord. The uterus was exteriorized and the interior cavity of the uterus swept of any remaining placental and membranous fragments with a laparotomy sponge. The margins of the incision were grasped with allis clampsand the incision closed . First layer was a running locking layer of 0 vicryl from margin to margin.. Any small points of bleeding were then made hemostatic with the Bovie. Once hemostasis was achieved, the posterior cul-de-sac was suctioned with a guard and the uterine and ovarian findings are as noted above. The left fallopian tube was then visualized grasped with a [place] clamp crushed and tied off 2 with oh plain catgut a segment of tube was then removed hemostasis was appreciated the right fallopian tube was noted to be removed prior to the C- section The uterus was replaced within the abdominal cavity and the gutters swept of any remaining blood fluid or clot. The incision was again reexamined and hemostasis was noted to be excellent. Any small point of bleeding were made hemostatic with the Bovie. Once hemostasis was achieved the parietal peritoneum was loosely reapproximated. The layer of muscles were examined and made hemostatic with the Bovie. Attention was then turned to the fascia which was closed with 2 running stitches of 0 Vicryl proceeding from the lateral margins to the midpoint. The subcutaneous tissues were irrigated, made hemostatic with the Bovie, and reapproximated with a running stitch of 30 vicryl. The skin was reapproximated with 4-0 vicryl. Estimated blood loss for the case was approximately 400 mL. All sponge instrument and needle counts are correct. There were no complications. The patient tolerated the procedure well and proceeded to the recovery room in stable condition. Both mother and are resting comfortably in recovery. delivered at 1133, weight 7-3 apgars 9-9 at 1 and 5 mins respectively
[2018-02-16] MEDS ORDERED: IBUPROFEN IV 800 MG in SODIUM CHLORIDE 0.9% 250 ML IV ONE (12:03)
[2018-02-16] MEDS ORDERED: OXYTOCIN 20 UNITS/1000 ML NS 1,000 ML IV SCH (12:15)
[2018-02-16] MEDS ORDERED: MORPHINE SULFATE/PF 10MG/10ML VL IVP PRN (12:39)
[2018-02-16] MEDS ORDERED: KETOROLAC 30 MG/ML 1 ML VIAL IVP PRN (12:39)
[2018-02-16] MEDS: LACTATED RINGERS 1,000 ML IV SCH ×2 (12:42→21:23)
--- NOTE | 2018-02-16 16:36 | P.MSEPDOC ---
Presenting Problems - Arrival Data Date of Arrival on Unit: 02/16/18 Time of Arrival on Unit: 09:53 Mode of Transport: Ambulatory - Complaint OB-Reason for Admission/Chief Complaint: Possible Onset of Labor Comment: pt states contractions every 25-30 minutes since 0500. denies leaking of fluid or bleeding. denies recent intercourse. pt states cervix closed in the office 2 days ago. Medical History - Information : 5 Para: 4 Term: 4 : 0 Abortions: Spontaneous or Elective: 0 Number of Living Children: 4 - Gestational Age Gestational Age by SEBLE (wks/days): 38 Weeks and 3 Days - History Complications: Prior Comment: vaginal delivery x3, last - pt states breech, Hx HSV noted. pt states HSV last outbreak 2 weeks ago this pergnancy, valtrex last taken 2 weeks ago Review of Systems - Review of Systems Constitutional: No problems Breast: No problems ENT: No problems Cardiovascular: No problems Respiratory: No problems Gastrointestinal: No problems Genitourinary: No problems Musculoskeletal: No problems Neurological: No problems Skin: No problems Vital Signs - Temperature Temperature: 97.4 F Temperature Source: Oral - Pulse Left Sitting Brachial Pulse Rate: 81 Pulse Assessment Method: Automatic Cuff - Respirations Respiratory Rate: 16 Oxygen Delivery Method: Room Air O2 Sat by Pulse Oximetry: 100 - Blood Pressure Left Arm Sitting Blood Pressure: 114/69 Blood Pressure Mean: 84 Blood Pressure Source: Automatic Cuff Medical Screen Scoring (Pre) - Cervical Exam Dilation: 0 cm = 0 - Uterine Contractions Frequency: > or = 36 weeks =2 Duration: N/A Intensity: N/A - Maternal Vital Signs Maternal Temperature: N/A Maternal Blood Pressure: N/A Signs of Preeclampsia: N/A Maternal Respirations: N/A - Pain Assessment Pain Location and Character: Abdomen Pain Scale Used: Numeric (1 - 10) Pain Intensity: 7 Pain Management Goal: 3 - Maternal Trauma Maternal Trauma: N/A - Assessment Baseline FHR: 130 Heart Rate - NICHD Category: Category I (Normal) = 0 NST: Reactive Position: N/A Station: N/A - Total Score Total Score (Pre): 2 - Level of Risk Level of Risk: Low (0-5) Physician Notification (Post) - Notification Comment Comment: Pt admitted for repeat C/S, pt seen by Dr Edmond Disposition - Disposition OB Disposition: Admit I agree with the RN Medical Screening Exam: Yes Risk & Benefit of care provided described in d/c instruction: Yes Diagnosis: OTH INFECT W SEXL MODE OF TRANSMISS COMP PREG, UNSP TRI
[2018-02-16] MEDS: diphenhydrAMINE 50 MG/ML 1 ML VIAL IVP PRN (17:17)
[2018-02-16] MEDS: SENNOSIDES-DOCUSATE SODIUM 1 EACH TAB PO SCH (21:23)
[2018-02-17] MEDS: LACTATED RINGERS 1,000 ML IV SCH ×2 (00:12→22:56)
[2018-02-17] MEDS: diphenhydrAMINE 50 MG/ML 1 ML VIAL IVP PRN (00:12)
--- NOTE | 2018-02-17 06:57 | P.PN ---
Progress Note - Text Progress Note Date: 02/17/18 Postoperative day 1 status post section under spinal/epidural anesthesia and intrathecal/epidural Duramorph for postoperative analgesia.The patient is doing well, there is mild generalized skin itching. There are no other anesthesia related complications. Further management as per the patient primary team.
[2018-02-17] MEDS: IBUPROFEN 600 MG TAB PO PRN ×2 (08:51→14:24)
--- NOTE | 2018-02-17 08:51 | P.PNOBGPC ---
Subjective - Subjective Principal diagnosis: IUP at 39 and 5, active HSV outbreak Interval history: Postoperatively this patient is doing well she is passing flatus, lochia is minimal, she is tolerating clear liquids without nausea or vomiting, she states her pain is well-controlled. Patient reports: Reports appetite normal, Reports voiding normally, Reports pain well controlled, Reports ambulating normally [place]: doing well Objective - Vital Signs Latest vital signs: Vital Signs Temp Pulse Resp BP Pulse Ox 02/17/18 06:00 14 02/17/18 04:00 98.6 F 75 14 99/54 99 02/17/18 00:00 98 F 83 18 123/68 98 02/16/18 23:00 18 02/16/18 21:00 16 02/16/18 20:00 98.1 F 81 16 113/66 97 02/16/18 18:55 18 02/16/18 17:39 97 02/16/18 17:00 18 02/16/18 16:36 97.4 F L 81 16 114/69 100 02/16/18 16:00 97.4 F L 81 16 114/69 100 02/16/18 15:39 18 02/16/18 14:02 74 18 124/69 95 02/16/18 13:32 75 17 127/74 92 L 02/16/18 13:02 82 18 115/58 99 02/16/18 12:47 76 18 122/63 98 02/16/18 12:32 82 18 116/60 96 02/16/18 12:17 74 18 115/53 96 02/16/18 12:02 97.4 F L 84 15 119/71 97 Intake and Output 02/16/18 02/17/18 02/17/18 22:59 06:59 14:59 Intake Total 1000 Output Total 850 950 Balance -850 50 Intake: IV 1000 Lactated Ringers 1,000 ml 1000 @ 125 mls/hr IV .Q8H [facility] Rx#:[id number] Output: Urine 850 950 Uretheral (Cintron) 250 Other: Voiding Method Indwelling Catheter # Voids 1 - Exam Abdomen: Present: soft Incision: Present: normal, dry, intact Uterus: Present: firm Assessment and Plan (1) Term Current Visit: Yes Status: Acute Code(s): Z34.80 - ENCOUNTER FOR SUPRVSN OF NORMAL , UNSP TRIMESTER SNOMED Code(s): 85602202 (2) HSV (herpes simplex virus) anogenital infection Current Visit: Yes Status: Acute Code(s): A60.9 - ANOGENITAL HERPESVIRAL INFECTION, UNSPECIFIED SNOMED Code(s): 087028506 (3) H/O section Current Visit: Yes Status: Acute Code(s): Z98.891 - HISTORY OF UTERINE SCAR FROM PREVIOUS SURGERY SNOMED Code(s): 077304443 Plan: We'll plan routine postoperative care today encourage increased ambulation and advanced diet as tolerated
[2018-02-17] MEDS: SENNOSIDES-DOCUSATE SODIUM 1 EACH TAB PO SCH ×2 (08:52→22:54)
[2018-02-17 08:54] LABS: Basophils % (A) 0 %; Eosinophils % (A) 0 %; HCT 34.2 % (34.0-46.0); HGB 10.9 gm/dL (11.4-16.0); Lymphocytes # (A) 1.4 k/uL (1.0-4.8); Lymphocytes % (A) 14 %; MCH 28.9 pg (25.0-35.0); MCV 90.2 fL (80.0-100.0); Mean Platelet Volume 7.1; Monocytes # (A) 0.6 k/uL (0-1.0); Monocytes % (A) 6 %; Neutrophils # (A) 7.8 k/uL (1.3-7.7); Neutrophils % (A) 78 %; Platelet Count 200 k/uL (150-450); RBC 3.79 m/uL (3.80-5.40); RDW 13.8 % (11.5-15.5)
[2018-02-17] MEDS: Acetaminophen-Codeine 300-30mg TAB PO PRN (23:57)
[2018-02-18] VITALS: RESP 16
[2018-02-18] MEDS: SENNOSIDES-DOCUSATE SODIUM 1 EACH TAB PO SCH (07:28)
[2018-02-18] MEDS: Acetaminophen-Codeine 300-30mg TAB PO PRN (07:29)
[2018-02-18 07:34] VITALS: BP 120/86; PULSE 78; TEMP 98
--- NOTE | 2018-02-18 08:23 | P.DS ---
Providers Date of admission: 02/16/18 10:11 Expected date of discharge: 02/18/18 Attending physician: Azul Edmond - Discharge Diagnosis(es) (1) Term Current Visit: Yes Status: Acute (2) HSV (herpes simplex virus) anogenital infection Current Visit: Yes Status: Acute (3) H/O section Current Visit: Yes Status: Acute Hospital Course: This is a very pleasant 32-year-old 5 para 4004 at 39-5/7 weeks with an estimated due date of 02/18/2018 the presented to triage with complaints of contractions and active HSV outbreak. Patient was counseled on the need for repeat section secondary to her active outbreak she stated understanding and the was performed. The. For further details on the please see the operative report. She delivered a viable female at 1133 a weight of 7 lbs. 3 oz. and Apgars of 9 and 9 at one and 5 minutes respectively. Patient's postoperative course has been uneventful. On postop day 2 she is feeling well and wishes to be discharged home. She states she is ambulating and voiding without difficulty she tolerated is tolerating regular diet without nausea or vomiting, and her lochia is minimal. Her pain is controlled with oral medication. Patient Condition at Discharge: Good Plan - Discharge Summary New Discharge Prescriptions: No Action No Known Home Medications [No Known Home Medications] Discharge Medication List No Known Home Medications [No Known Home Medications] 12/07/17 [History] Follow up Appointment(s)/Referral(s): Azul Edmond DO [Doctor of Osteopathic Medicine] - 2 Weeks Patient Instructions/Handouts: (DC) Discharge Disposition: HOME SELF-CARE
== END 2018-02-18 10:40 | disposition home or self-care (01) | DRG 766 ==
LOC: FBPOP 08:12 → 4FBP 10:11
PROVIDERS: ADMIT Obstetrics & Gynecology Obstetrics; ATTEND Obstetrics & Gynecology Obstetrics
PROC: 10D00Z1 Extraction of Products of Conception, Low, Open Approach (ICD-10-PCS; principal; 2018-02-16 11:29)
PROC: 0UB70ZZ Excision of Bilateral Fallopian Tubes, Open Approach (ICD-10-PCS; principal; 2018-02-16 11:29)
DX: O98.32 Other infections with a predominantly sexual mode of transmission complicating childbirth (principal); A60.9 Anogenital herpesviral infection, unspecified; Z37.0 Single live birth; Z3A.39 39 weeks gestation of pregnancy; O34.211 Maternal care for low transverse scar from previous cesarean delivery; N85.8 Other specified noninflammatory disorders of uterus; Z87.440 Personal history of urinary (tract) infections; Z30.2 Encounter for sterilization
CPT/HCPCS: 59025; 85025; 86850; 86900; 86901; 88302; 88307; 99213

== ENCOUNTER 2018-11-09 13:55 | Emergency (ER) | payer OTHER ==
[2018-11-09 14:11] VITALS: BP 119/81; PULSE 72; RESP 18; TEMP 98
[2018-11-09] MEDS ORDERED: METOCLOPRAMIDE 5 MG/ML 2 ML VIAL IM STA (14:20)
[2018-11-09] MEDS ORDERED: KETOROLAC 60 MG/2 ML VIAL IM STA (14:20)
[2018-11-09 14:48] LABS: Appearance,Urine Cloudy (Clear); Bilirubin,Urine Negative (Negative); Blood,Urine Negative (Negative); Color,Urine Yellow; Glucose,Urine (UA) Negative (Negative); Ketones,Urine Negative (Negative); Leukocyte Esterase,Urine Negative (Negative); Mucus,Urine Many /hpf; Nitrite,Urine Negative (Negative); Protein,Urine Trace (Negative); RBC,Urine 6 /hpf (0-5); Specific Gravity,Urine 1.023 (1.001-1.035); Squamous Epithelial Cell,Urine 9 /hpf (0-4); Urobilinogen,Urine <2.0 mg/dL (<2.0); WBC,Urine 3 /hpf (0-5)
--- NOTE | 2018-11-09 15:18 | ED ---
General Adult HPI - General Chief complaint: Headache Stated complaint: Migraine Time Seen by Provider: 11/09/18 14:05 Source: patient, RN notes reviewed Mode of arrival: ambulatory Limitations: no limitations - History of Present Illness Initial comments: 33-year-old female presents emergency from for multiple complaints. Patient primary complains migraine headache. She states she has a few a month. Patient states that she has been off her medications secondary to recent delivery of her child. She states that she normally receives Toradol and antiemetics. Patient reports typical diffuse headache no blurred vision but has photophobia. Denies fever, chills, neck pain, stiffness, chest pain, shortness breath. She's had slight nausea. Patient denies any chance . Patient denies any recent procedures. Patient states she also has some dysuria recently for infection. She states that she has not tried any Pyridium for her dysuria. - Related Data Home Medications Medication Instructions Recorded Confirmed Cholecalciferol [Vitamin D3] 1,000 unit PO DAILY 11/09/18 11/09/18 Sertraline [Zoloft] 50 mg PO DAILY 11/09/18 11/09/18 Previous Rx's Medication Instructions Recorded Omeprazole [PriLOSEC] 20 mg PO AC-BRKFST #14 cap 11/09/18 Ondansetron Odt [Zofran Odt] 4 mg PO Q8HR PRN #10 tab 11/09/18 Phenazopyridine [Pyridium] 200 mg PO TID #6 tablet 11/09/18 Allergies Allergy/AdvReac Type Severity Reaction Status Date / Time adhesive tape Allergy Rash/Hives Verified 11/09/18 14:22 Review of Systems ROS Statement: Those systems with pertinent positive or pertinent negative responses have been documented in the HPI. ROS Other: All systems not noted in ROS Statement are negative. Past Medical History Past Medical History: GERD/Reflux, Osteoarthritis (OA) Additional Past Medical History / Comment(s): migraines, bowel obstruction, frequent UTI's, History of Any Multi-Drug Resistant Organisms: None Reported Past Surgical History: Cholecystectomy Additional Past Surgical History / Comment(s): right oopherectomy Past Anesthesia/Blood Transfusion Reactions: No Reported Reaction Past Psychological History: Bipolar Smoking Status: Never smoker Past Alcohol Use History: None Reported Past Drug Use History: None Reported - Past Family History Father Family Medical History: Cancer Mother Family Medical History: Diabetes Mellitus General Exam Limitations: no limitations General appearance: alert, in no apparent distress Head exam: Present: atraumatic, normocephalic, normal inspection Eye exam: Present: normal appearance, PERRL, EOMI. Absent: scleral icterus, conjunctival injection, periorbital swelling ENT exam: Present: normal exam, normal oropharynx, mucous membranes moist, TM's normal bilaterally, normal external ear exam Neck exam: Present: normal inspection, full ROM. Absent: tenderness, meningismus, lymphadenopathy Respiratory exam: Present: normal lung sounds bilaterally. Absent: respiratory distress, wheezes, rales, rhonchi, stridor Cardiovascular Exam: Present: regular rate, normal rhythm, normal heart sounds. Absent: systolic murmur, diastolic murmur, rubs, gallop, clicks GI/Abdominal exam: Present: soft, normal bowel sounds. Absent: distended, tenderness, guarding, rebound, rigid Back exam: Absent: CVA tenderness (R), CVA tenderness (L) Neurological exam: Present: alert, oriented X3, CN II-XII intact, reflexes normal. Absent: motor sensory deficit Skin exam: Present: warm, dry, intact, normal color. Absent: rash Course Vital Signs 11/09/18 14:06 Temperature 98 F Pulse Rate 72 Respiratory 18 Rate Blood Pressure 119/81 O2 Sat by Pulse 96 Oximetry Medical Decision Making - Medical Decision Making 33-year-old female presents for headache, nausea, dysuria. Patient had urinalysis does not show any signs of actual infection. Patient will given Pyridium. Patient was given Toradol and Reglan for headache which has improved. Patient be given antiemetics and omeprazole for her nausea. Return parameters discussed. - Lab Data Lab Results 11/09/18 11/09/18 Range/Units 14:25 14:25 Urine Color Yellow Urine Appearance Cloudy H (Clear) Urine pH 6.0 (5.0-8.0) Ur Specific [place] 1.023 (1.001-1.035) Urine Protein Trace H (Negative) Urine Glucose (UA) Negative (Negative) Urine Ketones Negative (Negative) Urine Blood Negative (Negative) Urine Nitrite Negative (Negative) Urine Bilirubin Negative (Negative) Urine Urobilinogen <2.0 (<2.0) mg/dL Ur Leukocyte Esterase Negative (Negative) Urine RBC 6 H (0-5) /hpf Urine WBC 3 (0-5) /hpf Ur Squamous Epith Cells 9 H (0-4) /hpf Urine Mucus Many H (None) /hpf Urine HCG, Qual Not Detected (Not Detectd) Disposition Clinical Impression: Migraine, Dysuria, Nausea Disposition: HOME SELF-CARE Condition: Stable Instructions: Acute Headache (ED) Additional Instructions: Please return to the Emergency Department if symptoms worsen or any other concerns. Prescriptions: Omeprazole [PriLOSEC] 20 mg PO AC-BRKFST #14 cap Ondansetron Odt [Zofran Odt] 4 mg PO Q8HR PRN #10 tab PRN Reason: Nausea Phenazopyridine [Pyridium] 200 mg PO TID #6 tablet Is patient prescribed a controlled substance at d/c from ED?: No Referrals: [facility] [Primary Care Provider] - 1-2 days Time of Disposition: 15:18
== END 2018-11-09 15:26 | disposition home or self-care (01) ==
LOC: EC 13:55
DX: G43.909 Migraine, unspecified, not intractable, without status migrainosus (principal); R30.0 Dysuria; F31.9 Bipolar disorder, unspecified; Z79.899 Other long term (current) drug therapy; Z91.048 Other nonmedicinal substance allergy status
CPT/HCPCS: 81001; 81025; 99283; 96372 ×2; J2765; J1885

== ENCOUNTER 2019-01-23 21:11 | Emergency (ER) | payer OTHER ==
[2019-01-23] MEDS ORDERED: ACETAMINOPHEN TAB 325 MG TAB PO STA (21:25)
[2019-01-23 21:29] VITALS: RESP 19
[2019-01-23 22:00] LABS: Basophils % (A) 0 %; Eosinophils % (A) 0 %; HCT 38.3 % (34.0-46.0); HGB 12.3 gm/dL (11.4-16.0); Lymphocytes # (A) 0.9 k/uL (1.0-4.8); Lymphocytes % (A) 13 %; MCH 29.7 pg (25.0-35.0); MCHC 32.2 g/dL (31.0-37.0); MCV 92.1 fL (80.0-100.0); Mean Platelet Volume 6.4; Monocytes # (A) 0.4 k/uL (0-1.0); Monocytes % (A) 6 %; Neutrophils # (A) 5.5 k/uL (1.3-7.7); Neutrophils % (A) 79 %; Platelet Count 217 k/uL (150-450); RBC 4.16 m/uL (3.80-5.40); RDW 13.8 % (11.5-15.5)
[2019-01-23 22:01] LABS: Amorphous Sediment,Urine Rare /hpf; Appearance,Urine Cloudy (Clear); Bilirubin,Urine Negative (Negative); Blood,Urine Negative (Negative); Color,Urine Yellow; Glucose,Urine (UA) Negative (Negative); Ketones,Urine Negative (Negative); Leukocyte Esterase,Urine Negative (Negative); Mucus,Urine Many /hpf; Nitrite,Urine Negative (Negative); Protein,Urine Trace (Negative); RBC,Urine 6 /hpf (0-5); Specific Gravity,Urine 1.023 (1.001-1.035); Squamous Epithelial Cell,Urine 18 /hpf (0-4); Urobilinogen,Urine <2.0 mg/dL (<2.0)
[2019-01-23 22:14] LABS: ALT 31 U/L (9-52); AST 22 U/L (14-36); Albumin 4.6 g/dL (3.5-5.0); Alkaline Phosphatase 66 U/L (38-126); Anion Gap 9 mmol/L; Blood Urea Nitrogen 12 mg/dL (7-17); Calcium 9.4 mg/dL (8.4-10.2); Carbon Dioxide 25 mmol/L (22-30); Chloride 107 mmol/L (98-107); Glucose 101 mg/dL (74-99); Potassium 3.8 mmol/L (3.5-5.1); Sodium 141 mmol/L (137-145); Total Bilirubin 0.4 mg/dL (0.2-1.3); Total Protein 7.8 g/dL (6.3-8.2)
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
[2019-01-24 00:35] VITALS: BP 138/83; PULSE 76; TEMP 98.6
== END 2019-01-23 23:52 | disposition home or self-care (01) ==
LOC: EC 21:11
DX: S06.9X9A Unspecified intracranial injury with loss of consciousness of unspecified duration, initial encounter (principal); F41.9 Anxiety disorder, unspecified; Z79.899 Other long term (current) drug therapy; Z91.048 Other nonmedicinal substance allergy status; Z86.69 Personal history of other diseases of the nervous system and sense organs; V47.5XXA Car driver injured in collision with fixed or stationary object in traffic accident, initial encounter; Y92.410 Unspecified street and highway as the place of occurrence of the external cause
CPT/HCPCS: 36415; 80053; 85025; 81001; 81025; 71046; 72125; 70450; 71260; 74177; 99285; L0120; Q9967

== ENCOUNTER 2019-08-14 09:55 | Emergency (ER) | payer OTHER ==
[2019-08-14 10:01] VITALS: TEMP 97.6
--- NOTE | 2019-08-14 10:13 | ED ---
General Adult HPI - General Chief complaint: Urogenital Stated complaint: burning when I pee Time Seen by Provider: 08/14/19 10:03 Source: patient Mode of arrival: ambulatory Limitations: no limitations - History of Present Illness Initial comments: This is a 33-year-old female no snuff the past medical history presenting today for chief complaint of "I have pain when I pee" x 1 week. Patient states that for the past week she has had dysuria. Patient states she also has an odor from her vagina she denies any heavy vaginal discharge, bleeding she denies any significant abdominal pain flank pain hematuria. Patient states he does have increased urgency or frequency. Patient denies any external vaginal irritation or lesions. Patient states that she also suffers from chronic migraine she states she experienced them about twice a month and is treating them with her primary care provider. Patient states that this morning she woke up with a hea dache she states it was very dull first and has been increasing gradually. She states it is achy/throbbing. She denies any radiation. She states she has not taken any medications. Patient states that this is not the worst headache of her life is very typical of her migraines. Patient denies feeling as though there are alarming characteristics of this headache. Patient denies any speech changes visual changes weakness or sensation deficits of the upper or lower extremities. Patient denies any recent head trauma. Patient denies any recent fevers neck stiffness, or photophobia. Patient states the reason she presents emergency department was for the dysuria she states she does have concern for ST eyes or by testing today. Remaining review of system negative. Upon arrival patient appears well no signs of acute distress. - Related Data Home Medications Medication Instructions Recorded Confirmed Multivitamins, Thera [Multivitamin 1 tab PO DAILY 08/14/19 08/14/19 (formulary)] Sertraline [Zoloft] 100 mg PO DAILY 08/14/19 08/14/19 Previous Rx's Medication Instructions Recorded Cephalexin [Keflex] 500 mg PO Q12HR 5 Days #10 cap 08/14/19 Allergies Allergy/AdvReac Type Severity Reaction Status Date / Time adhesive tape Allergy Rash/Hives Verified 08/14/19 10:16 Review of Systems ROS Statement: Those systems with pertinent positive or pertinent negative responses have been documented in the HPI. ROS Other: All systems not noted in ROS Statement are negative. Past Medical History Past Medical History: GERD/Reflux, Osteoarthritis (OA) Additional Past Medical History / Comment(s): migraines, bowel obstruction, frequent UTI's, History of Any Multi-Drug Resistant Organisms: None Reported Past Surgical History: Cholecystectomy Additional Past Surgical History / Comment(s): right oopherectomy Past Anesthesia/Blood Transfusion Reactions: No Reported Reaction Past Psychological History: Anxiety, Bipolar Smoking Status: Never smoker Past Alcohol Use History: None Reported Past Drug Use History: None Reported - Past Family History Father Family Medical History: Cancer Mother Family Medical History: Diabetes Mellitus General Exam - General Exam Comments Initial Comments: General: The patient is awake and alert, in no distress, and does not appear acutely ill. Eye: +3 mm pupils are equal, round and reactive to light, extra-ocular movements are intact. No APD. No nystagmus. There is normal conjunctiva bilaterally. No signs of icterus. Ears, nose, mouth and throat: There are moist mucous membranes and no oral le sions. Neck: The neck is supple, there is no tenderness or JVD. Cardiovascular: There is a regular rate and rhythm. No murmur, rub or gallop is appreciated. Respiratory: Lungs are clear to auscultation, respirations are non-labored, breath sounds are equal. No wheezes, stridor, rales, or rhonchi. Gastrointestinal: Soft, non-distended, non-tender abdomen without masses or organomegaly noted. There is no rebound or guarding present. Pelvic exam no external lesions. Shaved female hair pattern. Vaginal mucosa pink well rugated, moderate amount of thin white discharge. No odor. No cervical motion or adnexal tenderness. No blood in the vaginal vault. No chandelier sign. Musculoskeletal: Normal ROM, no tenderness. Strength 5/5. Sensation intact. Pulses equal bilaterally 2+. Neurological: A&O x 3. 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 Able to follow simple verbal. Able to name a common object (pen). High quality, labial (pa) and lingual (la) speech. Low quality posterior pharynx/larynx (ga) voice sounds. Able to express general knowledge (days in a week). No hemineglect or inattention noted. Finger agnosia (-) and spatially oriented (identified L index finger touched R shoulder with L index finger). Light touch and temperature sensation present over the face, chest, abdomen, back, UE bilaterally, and LE bilaterally. Able to localize point during point localization b/l and extinction. No visible bulk atrophy, hypertrophy, fasciculations, or myoclonus of the UE or LE b/l. Full PROM in UE and LE b/l. Bilateral muscle strength 5/5 for the following muscles: deltoid, biceps, triceps, brachioradialis, wrist extensors/flexor, hip flexor, hip abductors/adductors, hamstrings, quadriceps, feet dorsiflexors/plantar flexors. Finger to nose, finger to the examiners finger, and heel to parks coordinated and accurate b/l. Coordinated and even demonstration of hand flip b/l. Gait is coordinated and even in stride. (-) pronator drift. No nuchal rigidity. Skin: Skin is warm and dry and no rashes or lesions are noted. Psychiatric: Cooperative, appropriate mood & affect, normal judgment. Limitations: no limitations Course Vital Signs 08/14/19 09:56 Temperature 97.6 F Pulse Rate 77 Respiratory 18 Rate Blood Pressure 108/63 O2 Sat by Pulse 99 Oximetry - Reevaluation(s) Reevaluation #1: Upon reevaluation of patient, when performing pelvic examination patient states that her headache is now gone. She states the medications worked quickly. Patient appears well. Patient states she has been with her partner for 2 months and would like treatment for STI prior to results. HCG (-). 08/14/19 10:56 Medical Decision Making - Medical Decision Making Very well-appearing 33-year-old female presented for multiple complaints. Patient states her main complaint was dysuria 1 week. Patient does have concern for sexually transmitted diseases. Patient has no pelvic pain adnexal tenderness or cervical motion tenderness or chandelier sign on pelvic examination. There is thin vaginal discharge on examination there is no odor noted. No external irritation or findings consistent with Nicole. Urinalysis as her feel positive leukocyte esterase with less than 5 white blood cells. Given patient is symptomatic we will treat with Keflex twice daily for 5 days for uncomplicated urinary tract infection. Patient would like treatment for denies although official results are pending. Patient is given ceftriaxone and azithromycin. Rapid Trichomonas was negative. Patient in addition was complaint of headache she states is very typical of her migraines that she experiences twice a month. Patient states there was no abnormal features of this particular headache began gradually and was not the worst headache of her life. Patient no focal neurological deficits and appeared well. She was given Toradol Benadryl and Zofran. Patient states upon reevaluation that the headache was completely resolved, and that the medications had worked rapidly. At this time given this patient headache, benign abdominal exam no alarming pelvic exam features, the patient is stable for discharge with outpatient primary care follow-up and [employer] evaluation. Patient is agreeable to this care plan discharge and was discharged appearing well - Lab Data Lab Results 08/14/19 08/14/19 08/14/19 Range/Units 10:22 10:22 10:40 Urine Color Yellow Urine Appearance Cloudy H (Clear) Urine pH 5.5 (5.0-8.0) Ur Specific [place] 1.027 (1.001-1.035) Urine Protein Negative (Negative) Urine Glucose (UA) Negative (Negative) Urine Ketones Negative (Negative) Urine Blood Negative (Negative) Urine Nitrite Negative (Negative) Urine Bilirubin Negative (Negative) Urine Urobilinogen <2.0 (<2.0) mg/dL Ur Leukocyte Esterase Small H (Negative) Urine WBC 2 (0-5) /hpf Ur Squamous Epith Cells 8 H (0-4) /hpf Urine Mucus Rare H (None) /hpf Urine HCG, Qual Not Detected (Not Detectd) Trichomonas Ag (Rapid) Negative (Negative) Disposition Clinical Impression: Dysuria, Vaginal discharge, Headache Disposition: HOME SELF-CARE Condition: Good Instructions (If sedation given, give patient instructions): Urinary Tract Infection in Women (ED), Acute Headache (ED) Additional Instructions: Please use medication as discussed. Please follow-up with family doctor in the next 2 days, I recommend routine examination from OBGYN within next 1-2 weeks. Please return to emergency room if the symptoms increase or worsen or for any other concerns, abdominal pain, worsening symptoms, fever, flu like symptoms. Is patient prescribed a controlled substance at d/c from ED?: No Referrals: [facility] [Primary Care Provider] - 1-2 days Time of Disposition: 11:00
[2019-08-14] MEDS ORDERED: SODIUM CHLORIDE 0.9% 500 ML 500 ML IV ONE (10:21)
[2019-08-14] MEDS ORDERED: diphenhydrAMINE 50 MG/ML 1 ML VIAL IVP STA (10:21)
[2019-08-14] MEDS ORDERED: ONDANSETRON 4 MG/2 ML VIAL IVP STA (10:21)
[2019-08-14] MEDS ORDERED: KETOROLAC 30 MG/ML 1 ML VIAL IVP STA (10:21)
[2019-08-14 10:40] LABS: Appearance,Urine Cloudy (Clear); Bilirubin,Urine Negative (Negative); Blood,Urine Negative (Negative); Color,Urine Yellow; Glucose,Urine (UA) Negative (Negative); Ketones,Urine Negative (Negative); Leukocyte Esterase,Urine Small (Negative); Mucus,Urine Rare /hpf; Nitrite,Urine Negative (Negative); PH, Urine 5.5 (5.0-8.0); Protein,Urine Negative (Negative); Specific Gravity,Urine 1.027 (1.001-1.035); Squamous Epithelial Cell,Urine 8 /hpf (0-4); Urobilinogen,Urine <2.0 mg/dL (<2.0); WBC,Urine 2 /hpf (0-5)
[2019-08-14] MEDS ORDERED: cefTRIAXone 250 MG VIAL IM STA (10:56)
[2019-08-14] MEDS ORDERED: AZITHROMYCIN 500 MG TAB PO STA (10:56)
[2019-08-14 11:49] VITALS: BP 116/74; PULSE 68; RESP 16
[2019-08-15 14:54] LABS: C. trachomatis,PCR Negative (Neg,Equiv); Chlamydia trachomatis Source Vagina; N. gonorrhoeae,PCR Negative (Neg,Equiv); Neisseria Source Vagina
== END 2019-08-14 11:50 | disposition home or self-care (01) ==
LOC: EC 09:55
DX: N89.8 Other specified noninflammatory disorders of vagina (principal); N39.0 Urinary tract infection, site not specified; G43.901 Migraine, unspecified, not intractable, with status migrainosus; F41.9 Anxiety disorder, unspecified; F31.9 Bipolar disorder, unspecified; Z79.899 Other long term (current) drug therapy; Z91.048 Other nonmedicinal substance allergy status
CPT/HCPCS: 99283 ×2; 96372 ×2; 96374 ×2; 96375 ×2; 96361 ×2; 81001; 81025; 87808; 87491; 87591; 87070; J1200; J2405; J0696; J1885

== ENCOUNTER → 2019-09-21 | Outpatient (CLI) | payer OTHER ==
--- NOTE | 2019-09-29 11:07 | HM ---
HOLTER MONITOR REPORT 72 HOUR HOLTER: This is a 72 hour Holter. Predominant rhythm appears to be sinus with a sinus arrhythmia and average heart rate ranged between 75-82 beats per minute. There was no evidence of any ventricular ectopy, There was no evidence of any significant supraventricular ectopy. There was no evidence of any significant pauses. There was no diary provided. FINAL IMPRESSION: This 72 hour Holter revealed predominant sinus rhythm with average heart rate of about 75-82 beats per minute. There was sinus rhythm, sinus tachycardia, sinus arrhythmia. There was some artifact. There was no evidence of any SVT, VT or bradyarrhythmia and no diary was provided. MMODL / IJN: [id number] /
== END | disposition home or self-care (01) ==
LOC: RADXRMAIN 08:35
PROVIDERS: ATTEND Internal Medicine
DX: R00.0 Tachycardia, unspecified (principal); I49.9 Cardiac arrhythmia, unspecified
CPT/HCPCS: 93225; 93226

== ENCOUNTER 2019-10-12 13:16 | Emergency (ER) | payer OTHER ==
[2019-10-12 13:29] VITALS: RESP 18
--- NOTE | 2019-10-12 14:30 | ED ---
Abdominal Pain HPI - General Chief Complaint: Abdominal Pain Stated Complaint: Abd Pain Time Seen by Provider: 10/12/19 13:59 Source: patient Mode of arrival: ambulatory Limitations: no limitations - History of Present Illness Initial Comments: Patient is a 34-year-old female presenting to the emergency Department with complaints of intermittent lower left sided abdominal pain 3 days. Patient states she notices the pain after intercourse. Patient admits to having a vaginal odor approximately 2 weeks ago but that has since cleared. Patient admits history of tubal ligation as well as cholecystectomy. Patient states she does have an ovary that has been removed secondary to a very large cyst, but she is unsure of which one. Patient admits to mild nausea that started today. Patient states she is in between cycles right now. Patient denies fever, chills, vomiting, diarrhea. Patient has no other complaints at this time. Upon arrival to the ER, vital signs are stable. - Related Data Home Medications Medication Instructions Recorded Confirmed Multivitamins, Thera [Multivitamin 1 tab PO DAILY 08/14/19 08/14/19 (formulary)] Sertraline [Zoloft] 100 mg PO DAILY 08/14/19 08/14/19 Previous Rx's Medication Instructions Recorded Cephalexin [Keflex] 500 mg PO Q12HR 5 Days #10 cap 08/14/19 Ondansetron Odt [Zofran Odt] 4 mg PO Q8HR PRN #10 tab 10/12/19 Allergies Allergy/AdvReac Type Severity Reaction Status Date / Time adhesive tape Allergy Rash/Hives Verified 10/12/19 13:29 Review of Systems ROS Statement: Those systems with pertinent positive or pertinent negative responses have been documented in the HPI. ROS Other: All systems not noted in ROS Statement are negative. Past Medical History Past Medical History: GERD/Reflux, Osteoarthritis (OA) Additional Past Medical History / Comment(s): migraines, bowel obstruction, frequent UTI's, History of Any Multi-Drug Resistant Organisms: None Reported Past Surgical History: Cholecystectomy, Tubal Ligation Additional Past Surgical History / Comment(s): right oopherectomy Past Anesthesia/Blood Transfusion Reactions: No Reported Reaction Past Psychological History: Anxiety, Bipolar Smoking Status: Never smoker Past Alcohol Use History: None Reported Past Drug Use History: None Reported - Past Family History Father Family Medical History: Cancer Mother Family Medical History: Diabetes Mellitus General Exam - General Exam Comments Initial Comments: GENERAL: Well-appearing, well-nourished and in no acute distress. HEAD: Atraumatic, normocephalic. EYES: Pupils equal round and reactive to light, extraocular movements intact, sclera anicteric, conjunctiva are normal. ENT: Nares patent, oropharynx clear without exudates. Moist mucous membranes. NECK: Normal range of motion, supple without lymphadenopathy or JVD. LUNGS: Breath sounds clear to auscultation bilaterally and equal. No wheezes rales or rhonchi. HEART: Regular rate and rhythm without murmurs, rubs or gallops. ABDOMEN: Left lower quadrant tenderness. Soft, normoactive bowel sounds. No guarding, no rebound. No masses appreciated. EXTREMITIES: Normal range of motion, no pitting or edema. No clubbing or cyanosis. NEUROLOGICAL: Cranial nerves II through XII grossly intact. Normal speech, normal gait. PSYCH: Normal mood, normal affect. SKIN: Warm, Dry, normal turgor, no rashes or lesions noted. Limitations: no limitations External exam: Present: normal external exam. Absent: erythema, swelling, lesions Speculum exam: Present: normal speculum exam. Absent: vaginal discharge, cervical discharge, vaginal bleeding, foreign body By manual exam: Present: normal by manual exam Course Vital Signs 10/12/19 10/12/19 13:26 15:28 Temperature 98.4 F 98.1 F Pulse Rate 78 72 Respiratory 18 18 Rate Blood Pressure 119/44 97/63 O2 Sat by Pulse 98 98 Oximetry Medical Decision Making - Medical Decision Making Patient is a 34-year-old female presenting with left lower quadrant intermittent pain after intercourse for 3 days. Patient's vital signs are stable, afebrile. Patient's exam is unremarkable except for some mild left lower quadrant tenderness. UA is normal, Trichomonas is negative. Bacterial culture as well as gonorrhea and chlamydia are still pending at this time. Transvaginal ultrasound reveals no acute abnormalities other than the surgical absence of right ovary. Patient will be given a perception for Zofran for mild nausea. Patient will also take Motrin as needed for pain. Discussed with patient this might be related to her ovulation cycle. Patient will follow-up with her SEWER BRICKLAYER for further management. Return parameters were discussed with the patient she verbalized understanding. - Lab Data Lab Results 10/12/19 10/12/19 10/12/19 Range/Units 14:15 14:15 14:15 Urine Color Light Yellow Urine Appearance Clear (Clear) Urine pH 6.0 (5.0-8.0) Ur Specific [place] 1.010 (1.001-1.035) Urine Protein Negative (Negative) Urine Glucose (UA) Negative (Negative) Urine Ketones Negative (Negative) Urine Blood Negative (Negative) Urine Nitrite Negative (Negative) Urine Bilirubin Negative (Negative) Urine Urobilinogen <2.0 (<2.0) mg/dL Ur Leukocyte Esterase Negative (Negative) Urine HCG, Qual Not Detected (Not Detectd) Trichomonas Ag (Rapid) Negative (Negative) Disposition Clinical Impression: Lower abdominal pain Disposition: HOME SELF-CARE Condition: Stable Instructions (If sedation given, give patient instructions): Abdominal Pain (ED) Additional Instructions: Please return to the Emergency Department if symptoms worsen or any other concerns such as fever, vomiting, severe abdominal pain. Follow-up with SEWER BRICKLAYER as discussed. May take Zofran for nausea as well as Motrin for pain. Prescriptions: Ondansetron Odt [Zofran Odt] 4 mg PO Q8HR PRN #10 tab PRN Reason: Nausea Is patient prescribed a controlled substance at d/c from ED?: No Referrals: [facility] [Primary Care Provider] - 1-2 days
[2019-10-12 14:53] LABS: Appearance,Urine Clear (Clear); Bilirubin,Urine Negative (Negative); Blood,Urine Negative (Negative); Color,Urine Light Yellow; Glucose,Urine (UA) Negative (Negative); Ketones,Urine Negative (Negative); Leukocyte Esterase,Urine Negative (Negative); Nitrite,Urine Negative (Negative); Protein,Urine Negative (Negative); Urobilinogen,Urine <2.0 mg/dL (<2.0)
--- NOTE | 2019-10-12 15:19 | US ---
EXAMINATION TYPE: US transvaginal DATE OF EXAM: 10/12/2019 COMPARISON: NONE CLINICAL HISTORY: pain . pain since intercourse 3 days ago TECHNIQUE: TV. Transvaginal sonographic images Date of LMP: 09/03/2019 EXAM MEASUREMENTS: Uterus: 7.1 x 5.9 x 4.7 cm Endometrial Stripe: 0.8 cm Right Ovary: surgically absent Left Ovary: 2.9 x 2.5 x 2.7 cm 1. Uterus: Retroverted wnl 2. Endometrium: wnl 3. Right Ovary: Surgically absent 4. Left Ovary: wnl Spectral, color and waveform doppler imaging shows good arterial and venous flow within the ovary; there is no evidence for ovarian torsion. 5. Bilateral Adnexa: wnl 6. Posterior cul-de-sac: wnl IMPRESSION: Unremarkable pelvic ultrasound other than surgical absence of the right ovary. Endometria l thickness is within normal limits.
[2019-10-12 15:31] VITALS: BP 97/63; PULSE 72; TEMP 98.1
[2019-10-13 13:47] LABS: C. trachomatis,PCR Negative (Neg,Equiv); Chlamydia trachomatis Source Cervix
[2019-10-13 13:53] LABS: N. gonorrhoeae,PCR Negative (Neg,Equiv); Neisseria Source Cervix
== END 2019-10-12 15:45 | disposition home or self-care (01) ==
LOC: EC 13:16
DX: R10.30 Lower abdominal pain, unspecified (principal); R11.0 Nausea; R10.814 Left lower quadrant abdominal tenderness; F41.9 Anxiety disorder, unspecified; F31.9 Bipolar disorder, unspecified; Z79.899 Other long term (current) drug therapy; Z91.048 Other nonmedicinal substance allergy status; Z90.49 Acquired absence of other specified parts of digestive tract; Z90.721 Acquired absence of ovaries, unilateral
CPT/HCPCS: 76830; 81003; 81025; 87070; 87491; 87591; 87808; 93976; 99284

== ENCOUNTER 2019-11-06 11:35 | Emergency (ER) | payer OTHER ==
[2019-11-06 11:50] VITALS: RESP 18; TEMP 98.2
[2019-11-06] MEDS ORDERED: cefTRIAXone 250 MG VIAL IM STA (11:53)
[2019-11-06] MEDS ORDERED: AZITHROMYCIN 500 MG TAB PO STA (11:53)
--- NOTE | 2019-11-06 12:10 | ED ---
Female Urogenital HPI - General Chief complaint: Urogenital Stated complaint: Bladder issues Time Seen by Provider: 11/06/19 11:50 Source: patient, RN notes reviewed, old records reviewed Mode of arrival: ambulatory Limitations: no limitations - History of Present Illness Initial comments: Patient is a 34-year-old female presents emergency department today with chief complaint of concern for STDs. She reports that she had intercourse with somebody that later told her that he was positive for chlamydia and gonorrhea. Patient states that she has had some vaginal itching and burning. She is currently being treated for urinary tract infection. She is on day 5 of 14 for Bactrim. She denies any abdominal pain or back pain. - Related Data Home Medications Medication Instructions Recorded Confirmed Multivitamins, Thera [Multivitamin 1 tab PO DAILY 08/14/19 08/14/19 (formulary)] Sertraline [Zoloft] 100 mg PO DAILY 08/14/19 08/14/19 Previous Rx's Medication Instructions Recorded Cephalexin [Keflex] 500 mg PO Q12HR 5 Days #10 cap 08/14/19 Ondansetron Odt [Zofran Odt] 4 mg PO Q8HR PRN #10 tab 10/12/19 Allergies Allergy/AdvReac Type Severity Reaction Status Date / Time adhesive tape Allergy Rash/Hives Verified 11/06/19 11:47 Review of Systems ROS Statement: Those systems with pertinent positive or pertinent negative responses have been documented in the HPI. ROS Other: All systems not noted in ROS Statement are negative. Past Medical History Past Medical History: GERD/Reflux, Osteoarthritis (OA) Additional Past Medical History / Comment(s): migraines, bowel obstruction, frequent UTI's, History of Any Multi-Drug Resistant Organisms: None Reported Past Surgical History: Cholecystectomy, Tubal Ligation Additional Past Surgical History / Comment(s): right oopherectomy Past Anesthesia/Blood Transfusion Reactions: No Reported Reaction Past Psychological History: Anxiety, Bipolar Smoking Status: Never smoker Past Alcohol Use History: None Reported Past Drug Use History: None Reported - Past Family History Father Family Medical History: Cancer Mother Family Medical History: Diabetes Mellitus General Exam - General Exam Comments Initial Comments: This is a 34-year-old female. Alert and oriented. No distress. Limitations: no limitations General appearance: alert, in no apparent distress Head exam: Present: atraumatic, normocephalic, normal inspection Eye exam: Present: normal appearance, PERRL, EOMI. Absent: scleral icterus, conjunctival injection, periorbital swelling ENT exam: Present: normal exam, mucous membranes moist Neck exam: Present: normal inspection. Absent: tenderness, meningismus, lymphadenopathy Respiratory exam: Present: normal lung sounds bilaterally. Absent: respiratory distress, wheezes, rales, rhonchi, stridor Cardiovascular Exam: Present: regular rate, normal rhythm, normal heart sounds. Absent: systolic murmur, diastolic murmur, rubs, gallop, clicks External exam: Present: normal external exam Speculum exam: Present: vaginal discharge (Scant amount of white vaginal discharge. No adnexal tenderness.). Absent: normal speculum exam By manual exam: Present: normal by manual exam Extremities exam: Present: normal inspection, full ROM, normal capillary refill. Absent: tenderness, pedal edema, joint swelling, calf tenderness Back exam: Present: normal inspection Neurological exam: Present: alert, oriented X3, CN II-XII intact Course Vital Signs 11/06/19 11:47 Temperature 98.2 F Pulse Rate 83 Respiratory 18 Rate Blood Pressure 116/76 O2 Sat by Pulse 98 Oximetry Medical Decision Making - Medical Decision Making Patient's a 34-year-old female for concern for STD exposure. Patient reports she had unprotected intercourse last night. Patient at this time does have some scant amount of vaginal discharge. Stop her Coumadin gonorrhea. But didn't receive treatment with Rocephin and azithromycin as well as have the results back for the next 24 hours. She is currently on Bactrim for urinary tract infection. Patient urinalysis negative for infection. Trichomonas test is negative. I discussed no further treatment needed at this time and she didn't feet complete her original prescription of Bactrim. QUESTIONS were answered return parameters were discussed. - Lab Data Lab Results 11/06/19 11/06/19 11/06/19 Range/Units 12:14 12:14 12:14 Urine Color Yellow Urine Appearance Clear (Clear) Urine pH 5.5 (5.0-8.0) Ur Specific [place] 1.021 (1.001-1.035) Urine Protein Negative (Negative) Urine Glucose (UA) Negative (Negative) Urine Ketones Negative (Negative) Urine Blood Trace H (Negative) Urine Nitrite Negative (Negative) Urine Bilirubin Negative (Negative) Urine Urobilinogen <2.0 (<2.0) mg/dL Ur Leukocyte Esterase Negative (Negative) Urine RBC 1 (0-5) /hpf Urine WBC 1 (0-5) /hpf Ur Squamous Epith Cells 3 (0-4) /hpf Urine Mucus Rare H (None) /hpf Urine HCG, Qual Not Detected (Not Detectd) Trichomonas Ag (Rapid) Negative (Negative) Disposition Clinical Impression: STD exposure Disposition: HOME SELF-CARE Condition: Good Instructions (If sedation given, give patient instructions): Sexually Transmitted Diseases (ED), Safe Sex (ED) Additional Instructions: Please use medication as discussed. Please follow up with family doctor if symptoms have not improved over the next two days. Please return to the emergency room if your symptoms increase or worsen or for any other concerns. Complete original antibiotic. Is patient prescribed a controlled substance at d/c from ED?: No Referrals: [facility] [Primary Care Provider] - 1-2 days Time of Disposition: 12:51
[2019-11-06 12:25] LABS: Appearance,Urine Clear (Clear); Bilirubin,Urine Negative (Negative); Blood,Urine Trace (Negative); Color,Urine Yellow; Glucose,Urine (UA) Negative (Negative); Ketones,Urine Negative (Negative); Leukocyte Esterase,Urine Negative (Negative); Mucus,Urine Rare /hpf; Nitrite,Urine Negative (Negative); PH, Urine 5.5 (5.0-8.0); Protein,Urine Negative (Negative); RBC,Urine 1 /hpf (0-5); Specific Gravity,Urine 1.021 (1.001-1.035); Squamous Epithelial Cell,Urine 3 /hpf (0-4); Urobilinogen,Urine <2.0 mg/dL (<2.0); WBC,Urine 1 /hpf (0-5)
[2019-11-06 13:18] VITALS: BP 120/77; PULSE 80
[2019-11-08 15:51] LABS: C. trachomatis,PCR Negative (Neg,Equiv); Chlamydia trachomatis Source Vagina
[2019-11-08 16:01] LABS: N. gonorrhoeae,PCR Negative (Neg,Equiv); Neisseria Source Vagina
== END 2019-11-06 13:20 | disposition home or self-care (01) ==
LOC: EC 11:35
DX: Z20.2 Contact with and (suspected) exposure to infections with a predominantly sexual mode of transmission (principal); N89.8 Other specified noninflammatory disorders of vagina; N39.0 Urinary tract infection, site not specified; F41.9 Anxiety disorder, unspecified; F31.9 Bipolar disorder, unspecified; Z79.899 Other long term (current) drug therapy; Z91.048 Other nonmedicinal substance allergy status
CPT/HCPCS: 81001; 81025; 87808; 87491; 87591; 87070; 99284; 96372; J0696

== ENCOUNTER 2020-07-20 13:05 | Emergency (ER) | payer OTHER ==
[2020-07-20 13:09] VITALS: TEMP 98.5
[2020-07-20] MEDS ORDERED: KETOROLAC 15 MG/ML 1 ML VIAL IVP STA (13:36)
[2020-07-20] MEDS ORDERED: SODIUM CHLORIDE 0.9% 1,000 ML IV STA (13:36)
[2020-07-20] MEDS ORDERED: METOCLOPRAMIDE 5 MG/ML 2 ML VIAL IVP STA (13:37)
[2020-07-20] MEDS ORDERED: diphenhydrAMINE 50 MG/ML 1 ML VIAL IVP STA (13:37)
--- NOTE | 2020-07-20 14:06 | ED ---
Headache HPI - General Chief Complaint: Headache Stated Complaint: Migraine Time Seen by Provider: 07/20/20 13:15 Mode of arrival: ambulatory Limitations: no limitations - History of Present Illness Initial Comments: Patient is a 34-year-old female presenting to the emergency Department with complaints of a migraine 2 days as well as urinary frequency. Patient states she doesn't history of migraines and this feels similar. She has tried [place] medications such as Tylenol, ibuprofen, aspirin without relief. She states she has not followed up with neurologist regarding her migraines. She denies any injuries or trauma. She denies any blurry vision, vomiting. She does admit to some mild nausea. Patient other concern is urinary frequency and some mild suprapubic pressure. She denies any dysuria, vaginal discharge, concern for STD. She denies being at this time secondary tubal ligation. She denies any fever, chills, shortness of breath or chest pain. She has no further complaints at this time. Upon arrival to the ER, her vital signs are stable. - Related Data Home Medications Medication Instructions Recorded Confirmed Multivitamins, Thera [Multivitamin 1 tab PO DAILY 08/14/19 08/14/19 (formulary)] Sertraline [Zoloft] 100 mg PO DAILY 08/14/19 08/14/19 Previous Rx's Medication Instructions Recorded Cephalexin [Keflex] 500 mg PO Q12HR 5 Days #10 cap 08/14/19 Ondansetron Odt [Zofran Odt] 4 mg PO Q8HR PRN #10 tab 10/12/19 Allergies Allergy/AdvReac Type Severity Reaction Status Date / Time adhesive tape Allergy Rash/Hives Verified 07/20/20 13:09 Review of Systems ROS Statement: Those systems with pertinent positive or pertinent negative responses have been documented in the HPI. ROS Other: All systems not noted in ROS Statement are negative. Past Medical History Past Medical History: GERD/Reflux, Osteoarthritis (OA) Additional Past Medical History / Comment(s): migraines, bowel obstruction, frequent UTI's, History of Any Multi-Drug Resistant Organisms: None Reported Past Surgical History: Cholecystectomy, Tubal Ligation Additional Past Surgical History / Comment(s): right oopherectomy Past Anesthesia/Blood Transfusion Reactions: No Reported Reaction Past Psychological History: Anxiety, Bipolar Smoking Status: Never smoker Past Alcohol Use History: None Reported Past Drug Use History: None Reported - Past Family History Father Family Medical History: Cancer Mother Family Medical History: Diabetes Mellitus General Exam - General Exam Comments Initial Comments: GENERAL: Patient is well-developed and well-nourished. Patient is nontoxic and in no acute distress. HEAD: Atraumatic, normocephalic. EYES: Pupils equal round and reactive to light, extraocular movements intact, sclera anicteric, conjunctiva are normal. Eyelids were unremarkable. ENT: TMs normal, nares patent, oropharynx clear without exudates. Moist mucous membranes. NECK: Normal range of motion, supple without lymphadenopathy or JVD. LUNGS: Unlabored respirations. Breath sounds clear to auscultation bilaterally and equal. No wheezes rales or rhonchi. HEART: Regular rate and rhythm without murmurs, rubs or gallops. ABDOMEN: Soft, nontender, normoactive bowel sounds. No guarding, no rebound. No masses appreciated. : Deferred MUSCULOSKELETAL: Normal extremities with adequate strength and normal range of motion, no pitting or edema. No clubbing or cyanosis. NEUROLOGICAL: Patient is alert and oriented x 3. Motor and sensory are also intact. Cranial nerves II through XII grossly intact. Symmetrical smile. Normal speech, normal gait. PSYCH: Normal mood, normal affect. SKIN: Warm, Dry, normal turgor, no rashes or lesions noted. Limitations: no limitations Course Vital Signs 07/20/20 07/20/20 13:06 14:41 Temperature 98.5 F Pulse Rate 75 76 Respiratory 20 18 Rate Blood Pressure 143/89 116/68 O2 Sat by Pulse 100 100 Oximetry Medical Decision Making - Medical Decision Making Patient is a 34-year-old female here for a migraine 2 days as well as urinary frequency. Her vital signs are stable, she does have history of migraines and this feels similar. Her neuro exam is normal. Patient was very concerned with her migraine and is requesting a CT of her brain. She has yet to follow up with a neurologist. Computed tomography scan showed no acute abnormalities. Patient was given Toradol, Zofran, Benadryl and reports improvement of migraine. She states she is feeling comfortable to go home. Patient was unable to give me a urine sample to check for UTI. She does not want to wait for this either. She is stable for discharge. I recommended following up with neurologist or her PCP for continued migraines or concern for UTI. Return parameters were discussed with the patient she verbalized understanding. Disposition Clinical Impression: Migraine headache, Urine frequency Disposition: HOME SELF-CARE Condition: Stable Instructions (If sedation given, give patient instructions): Acute Headache (ED) Additional Instructions: Please return to the Emergency Department if symptoms worsen or any other concerns. Recommend Excedrin for migraines for continued migraine. Follow-up with PCP or neurology for further management. Is patient prescribed a controlled substance at d/c from ED?: No Referrals: [facility] [Primary Care Provider] - 1-2 days
--- NOTE | 2020-07-20 14:10 | CT ---
EXAMINATION TYPE: CT brain wo con DATE OF EXAM: 07/20/2020 COMPARISON: 01/23/2019 HISTORY: Migraine. CT DLP: 1129.[address] of the brain was performed. The ventricles, basal cisterns and sulci overlying the cerebral convexities demonstrate a normal appe arance. There is no evidence for intracranial hemorrhage or sulcal effacement. No mass effects are seen. Osseous calvarium is intact. If symptoms persist consider MRI as clinically warranted. IMPRESSION: 1. No acute intracranial process is seen at this time.
[2020-07-20 14:43] VITALS: BP 116/68; PULSE 76; RESP 18
== END 2020-07-20 15:08 | disposition home or self-care (01) ==
LOC: EC 13:05
DX: G43.909 Migraine, unspecified, not intractable, without status migrainosus (principal); R35.0 Frequency of micturition; Z91.048 Other nonmedicinal substance allergy status; F41.9 Anxiety disorder, unspecified; F31.9 Bipolar disorder, unspecified; Z79.899 Other long term (current) drug therapy
CPT/HCPCS: 70450; 99283; 96374; 96375 ×2; 96361; J1200; J2765; J1885

== ENCOUNTER 2020-11-12 19:57 | Emergency (ER) | payer OTHER ==
[2020-11-12 20:17] VITALS: RESP 18; TEMP 98.2
[2020-11-12] MEDS ORDERED: SODIUM CHLORIDE 0.9% 1,000 ML IV STA (20:37)
[2020-11-12] MEDS ORDERED: HYDROmorphone 0.5 MG/0.5 ML SYRINGE IVP STA (20:38)
[2020-11-12 20:55] LABS: Basophils % (A) 1 %; Eosinophils % (A) 0 %; HCT 40.8 % (34.0-46.0); HGB 13.5 gm/dL (11.4-16.0); Lymphocytes # (A) 1.9 k/uL (1.0-4.8); Lymphocytes % (A) 31 %; MCH 29.7 pg (25.0-35.0); MCHC 33.2 g/dL (31.0-37.0); MCV 89.5 fL (80.0-100.0); Mean Platelet Volume 6.7; Monocytes # (A) 0.4 k/uL (0-1.0); Monocytes % (A) 6 %; Neutrophils # (A) 3.6 k/uL (1.3-7.7); Neutrophils % (A) 60 %; Platelet Count 259 k/uL (150-450); RBC 4.55 m/uL (3.80-5.40)
[2020-11-12 21:02] LABS: Amorphous Sediment,Urine Rare /hpf; Appearance,Urine Turbid (Clear); Bacteria,Urine Occasional /hpf; Bilirubin,Urine Negative (Negative); Blood,Urine Negative (Negative); Color,Urine Yellow; Glucose,Urine (UA) Negative (Negative); Ketones,Urine Negative (Negative); Leukocyte Esterase,Urine Trace (Negative); Mucus,Urine Rare /hpf; Nitrite,Urine Negative (Negative); Protein,Urine Trace (Negative); RBC,Urine 21 /hpf (0-5); Squamous Epithelial Cell,Urine 45 /hpf (0-4); Urobilinogen,Urine <2.0 mg/dL (<2.0); WBC,Urine 2 /hpf (0-5)
[2020-11-12 21:04] LABS: ALT 20 U/L (4-34); AST 22 U/L (14-36); African American GFR (CKD) >90 (>60 ml/min/1.73 sqM); Albumin 4.4 g/dL (3.5-5.0); Alkaline Phosphatase 66 U/L (38-126); Amylase 56 U/L (30-110); Anion Gap 5 mmol/L; Blood Urea Nitrogen 10 mg/dL (7-17); Calcium 9.3 mg/dL (8.4-10.2); Carbon Dioxide 31 mmol/L (22-30); Chloride 104 mmol/L (98-107); Glucose 104 mg/dL (74-99); Lipase 263 U/L (23-300); Non-African American GFR(CKD) >90 (>60 ml/min/1.73 sqM); Potassium 4.4 mmol/L (3.5-5.1); Sodium 140 mmol/L (137-145); Total Bilirubin 0.3 mg/dL (0.2-1.3); Total Protein 7.4 g/dL (6.3-8.2)
--- NOTE | 2020-11-12 21:08 | ED ---
General Adult HPI - General Chief complaint: Abdominal Pain Stated complaint: Kidney Pain Time Seen by Provider: 11/12/20 20:11 Source: patient, RN notes reviewed Mode of arrival: ambulatory Limitations: no limitations - History of Present Illness Initial comments: 35-year-old female with a past medical history of GERD, migraines, bowel obstruction, frequent UTIs, treated for chlamydia 2.5 weeks ago presents to the emergency department for left flank and pelvic pain. Patient states that since that time she has had pain in her left lower quadrant and left flank. She states that her vaginal discharge has improved. She states she was treated with 1 pill and one shot. Patient states she thinks she has a kidney stone and that is what is causing the pain. She has never had a kidney stone before. She also had a cyst removed off the left ovary a few months ago at [facility]. She denies nausea vomiting.Patient has no other complaints at this time including shortness of breath, chest pain, abdominal pain, nausea or vomiting, headache, or visual changes. - Related Data Home Medications Medication Instructions Recorded Confirmed Multivitamins, Thera [Multivitamin 1 tab PO DAILY 08/14/19 08/14/19 (formulary)] Sertraline [Zoloft] 100 mg PO DAILY 08/14/19 08/14/19 Previous Rx's Medication Instructions Recorded Cephalexin [Keflex] 500 mg PO Q12HR 5 Days #10 cap 08/14/19 Ondansetron Odt [Zofran Odt] 4 mg PO Q8HR PRN #10 tab 10/12/19 Doxycycline [Vibramycin] 100 mg PO BID 14 Days #28 capsule 11/12/20 Allergies Allergy/AdvReac Type Severity Reaction Status Date / Time adhesive tape Allergy Rash/Hives Verified 07/20/20 13:09 Review of Systems ROS Statement: Those systems with pertinent positive or pertinent negative responses have been documented in the HPI. ROS Other: All systems not noted in ROS Statement are negative. Past Medical History Past Medical History: GERD/Reflux, Osteoarthritis (OA) Additional Past Medical History / Comment(s): migraines, bowel obstruction, frequent UTI's, History of Any Multi-Drug Resistant Organisms: None Reported Past Surgical History: Cholecystectomy, Tubal Ligation Additional Past Surgical History / Comment(s): right oopherectomy Past Anesthesia/Blood Transfusion Reactions: No Reported Reaction Past Psychological History: Anxiety, Bipolar Smoking Status: Never smoker Past Alcohol Use History: None Reported Past Drug Use History: None Reported - Past Family History Father Family Medical History: Cancer Mother Family Medical History: Diabetes Mellitus General Exam Limitations: no limitations General appearance: alert, in no apparent distress Head exam: Present: atraumatic, normocephalic, normal inspection Eye exam: Present: normal appearance, PERRL, EOMI. Absent: scleral icterus, conjunctival injection, periorbital swelling ENT exam: Present: normal exam, mucous membranes moist Neck exam: Present: normal inspection, full ROM. Absent: tenderness, meningismus, lymphadenopathy Respiratory exam: Present: normal lung sounds bilaterally. Absent: respiratory distress, wheezes, rales, rhonchi, stridor Cardiovascular Exam: Present: regular rate, normal rhythm, normal heart sounds. Absent: systolic murmur, diastolic murmur, rubs, gallop, clicks GI/Abdominal exam: Present: soft, tenderness (Minimal left lower quadrant tenderness), normal bowel sounds. Absent: distended, guarding, rebound, rigid External exam: Present: normal external exam. Absent: erythema, swelling, le sions, lacerations, ecchymosis Speculum exam: Present: cervical discharge (white). Absent: normal speculum exam, erythema, vaginal discharge, vaginal bleeding, foreign body, tissue, laceration By manual exam: Present: normal by manual exam. Absent: cervical motion tenderness, adnexal tenderness, adnexal mass, uterine enlargement, uterine tenderness Back exam: Present: CVA tenderness (L) Course Vital Signs 11/12/20 20:11 Temperature 98.2 F Pulse Rate 80 Respiratory 18 Rate Blood Pressure 145/99 O2 Sat by Pulse 98 Oximetry Medical Decision Making - Medical Decision Making Vitals are stable. HPI and physical exam as documented. Patient was recently treated for chlamydia and gonorrhea. She had one pill and one shot. Minimal suprapubic and left lower quadrant tenderness. Pelvic exam did reveal cervical discharge without cervical motion tenderness. CBC CMP unremarkable. Urinalysis does show red blood cells however is contaminated with squamous cells. CT abdomen and pelvis shows no suspicious abnormality to account for abdominal pain. Adnexal regions are clear, no free fluid is within the pelvis. At this time patient will be treated for PID. Gonorrhea Chlamydia and Trichomonas pen shola. She was already treated with IM Rocephin at another facility will be treated with 14 days of doxycycline. She will follow-up with her doctor. She will return here for any worsening symptoms. I discussed this case with attending Dr. Guzmán who agrees with this assessment and treatment plan. - Lab Data Result diagrams: 11/12/20 20:42 11/12/20 20:42 Lab Results 11/12/20 11/12/20 11/12/20 Range/Units 20:42 20:42 20:42 WBC 6.0 (3.8-10.6) k/uL RBC 4.55 (3.80-5.40) m/uL Hgb 13.5 (11.4-16.0) gm/dL Hct 40.8 (34.0-46.0) % MCV 89.5 (80.0-100.0) fL MCH 29.7 (25.0-35.0) pg MCHC 33.2 (31.0-37.0) g/dL RDW 14.0 (11.5-15.5) % Plt Count 259 (150-450) k/uL MPV 6.7 Neutrophils % 60 % Lymphocytes % 31 % Monocytes % 6 % Eosinophils % 0 % Basophils % 1 % Neutrophils # 3.6 (1.3-7.7) k/uL Lymphocytes # 1.9 (1.0-4.8) k/uL Monocytes # 0.4 (0-1.0) k/uL Eosinophils # 0.0 (0-0.7) k/uL Basophils # 0.0 (0-0.2) k/uL Sodium 140 (137-145) mmol/L Potassium 4.4 (3.5-5.1) mmol/L Chloride 104 (98-107) mmol/L Carbon Dioxide 31 H (22-30) mmol/L Anion Gap 5 mmol/L BUN 10 (7-17) mg/dL Creatinine 0.71 (0.52-1.04) mg/dL Est GFR (CKD-EPI)AfAm >90 (>60 ml/min/1.73 sqM) Est GFR (CKD-EPI)NonAf >90 (>60 ml/min/1.73 sqM) Glucose 104 H (74-99) mg/dL Calcium 9.3 (8.4-10.2) mg/dL Total Bilirubin 0.3 (0.2-1.3) mg/dL AST 22 (14-36) U/L ALT 20 (4-34) U/L Alkaline Phosphatase 66 (38-126) U/L Total Protein 7.4 (6.3-8.2) g/dL Albumin 4.4 (3.5-5.0) g/dL Amylase 56 (30-110) U/L Lipase 263 (23-300) U/L Urine Color Yellow Urine Appearance Turbid H (Clear) Urine pH 8.0 (5.0-8.0) Ur Specific [place] 1.020 (1.001-1.035) Urine Protein Trace H (Negative) Urine Glucose (UA) Negative (Negative) Urine Ketones Negative (Negative) Urine Blood Negative (Negative) Urine Nitrite Negative (Negative) Urine Bilirubin Negative (Negative) Urine Urobilinogen <2.0 (<2.0) mg/dL Ur Leukocyte Esterase Trace H (Negative) Urine RBC 21 H (0-5) /hpf Urine WBC 2 (0-5) /hpf Ur Squamous Epith Cells 45 H (0-4) /hpf Amorphous Sediment Rare H (None) /hpf Urine Bacteria Occasional H (None) /hpf Urine Mucus Rare H (None) /hpf Urine HCG, Qual (Not Detectd) 11/12/20 Range/Units 20:42 WBC (3.8-10.6) k/uL RBC (3.80-5.40) m/uL Hgb (11.4-16.0) gm/dL Hct (34.0-46.0) % MCV (80.0-100.0) fL MCH (25.0-35.0) pg MCHC (31.0-37.0) g/dL RDW (11.5-15.5) % Plt Count (150-450) k/uL MPV Neutrophils % % Lymphocytes % % Monocytes % % Eosinophils % % Basophils % % Neutrophils # (1.3-7.7) k/uL Lymphocytes # (1.0-4.8) k/uL Monocytes # (0-1.0) k/uL Eosinophils # (0-0.7) k/uL Basophils # (0-0.2) k/uL Sodium (137-145) mmol/L Potassium (3.5-5.1) mmol/L Chloride (98-107) mmol/L Carbon Dioxide (22-30) mmol/L Anion Gap mmol/L BUN (7-17) mg/dL Creatinine (0.52-1.04) mg/dL Est GFR (CKD-EPI)AfAm (>60 ml/min/1.73 sqM) Est GFR (CKD-EPI)NonAf (>60 ml/min/1.73 sqM) Glucose (74-99) mg/dL Calcium (8.4-10.2) mg/dL Total Bilirubin (0.2-1.3) mg/dL AST (14-36) U/L ALT (4-34) U/L Alkaline Phosphatase (38-126) U/L Total Protein (6.3-8.2) g/dL Albumin (3.5-5.0) g/dL Amylase (30-110) U/L Lipase (23-300) U/L Urine Color Urine Appearance (Clear) Urine pH (5.0-8.0) Ur Specific [place] (1.001-1.035) Urine Protein (Negative) Urine Glucose (UA) (Negative) Urine Ketones (Negative) Urine Blood (Negative) Urine Nitrite (Negative) Urine Bilirubin (Negative) Urine Urobilinogen (<2.0) mg/dL Ur Leukocyte Esterase (Negative) Urine RBC (0-5) /hpf Urine WBC (0-5) /hpf Ur Squamous Epith Cells (0-4) /hpf Amorphous Sediment (None) /hpf Urine Bacteria (None) /hpf Urine Mucus (None) /hpf Urine HCG, Qual Not Detected (Not Detectd) Disposition Clinical Impression: Abdominal pain Disposition: HOME SELF-CARE Condition: Good Instructions (If sedation given, give patient instructions): Pelvic Inflammatory Disease (ED), Abdominal Pain (ED) Additional Instructions: Please take antibiotic as directed. You should not get on this medication as it can cause defects. Follow up on culture results. Follow-up with your doctor in one to 2 days. If you develop worsening symptoms return to the emergency room. Prescriptions: Doxycycline [Vibramycin] 100 mg PO BID 14 Days #28 capsule Is patient prescribed a controlled substance at d/c from ED?: No Referrals: [facility] [Primary Care Provider] - 1-2 days Time of Disposition: 22:27
--- NOTE | 2020-11-12 21:29 | CT ---
EXAMINATION TYPE: CT abdomen pelvis w con DATE OF EXAM: 11/12/2020 COMPARISON: 01/23/2019 INDICATION: abdominal pain DLP: 1518.1 mGycm, Automated exposure control for dose reduction was used. CONTRAST: 100 mL of Isovue 300. Study performed without Oral Contrast TECHNIQUE: Axial images were obtained from above the diaphragm to the pubic rami in the axial plane a t 5 mm thick sections. Reconstructed images are reviewed on the computer in the coronal plane. FINDINGS: Limited CT sections are obtained the lung bases. The lung bases are clear. CT ABDOMEN: Liver: Normal Spleen: Normal Pancreas: Normal Adrenal glands: The adrenal glands are normal. Gallbladder: Surgically absent Kidneys: No masses are evident. No hydronephrosis is present. No cysts are present. Delayed images were obtained through the kidneys which remain unremarkable. Aorta: Normal Inferior vena cava: Normal. CT PELVIS: Loops of bowel within the abdomen and pelvis are normal. Study is without oral contrast limiting bowel evaluation. Appendix: Normal air-filled as visualized. Urinary bladder: Normal. Genitourinary structures: Uterus appears normal. Adnexal regions are clear. No free fluid is within t he pelvis. Osseous structures: No suspicious lytic or sclerotic lesions. IMPRESSIONS: 1. No suspicious abnormality to account for abdomen pain
[2020-11-12] MEDS ORDERED: KETOROLAC 15 MG/ML 1 ML VIAL IVP STA (21:56)
[2020-11-12] MEDS ORDERED: DOXYCYCLINE 100 MG CAP PO STA (22:26)
[2020-11-12 22:46] VITALS: BP 114/68; PULSE 78
[2020-11-14 12:58] LABS: C. trachomatis,PCR Negative (Neg,Equiv); Chlamydia trachomatis Source Vagina; N. gonorrhoeae,PCR Negative (Neg,Equiv); Neisseria Source Vagina
== END 2020-11-12 22:46 | disposition home or self-care (01) ==
LOC: EC 19:57
DX: R10.32 Left lower quadrant pain (principal); F41.9 Anxiety disorder, unspecified; F32.9 Major depressive disorder, single episode, unspecified; Z79.899 Other long term (current) drug therapy; Z90.49 Acquired absence of other specified parts of digestive tract; Z90.721 Acquired absence of ovaries, unilateral; Z91.048 Other nonmedicinal substance allergy status
CPT/HCPCS: 36415; 80053; 82150; 83690; 85025; 81001; 81025; 87808; 87491; 87591; 74177; 99284; 96374; 96375; 96361; J1885; J1170; Q9967

== ENCOUNTER 2020-12-04 18:02 | Emergency (ER) | payer OTHER ==
[2020-12-04] MEDS ORDERED: ONDANSETRON ODT 4 MG TAB PO STA (18:32)
--- NOTE | 2020-12-04 18:40 | ED ---
General Adult HPI <Jonathan Schmitz P - Last Filed: 12/04/20 19:27> - General Source: patient, RN notes reviewed Mode of arrival: ambulatory Limitations: no limitations <Maverick Rolle - Last Filed: 12/04/20 20:36> - General Chief complaint: Abdominal Pain Stated complaint: Abdominal pain Time Seen by Provider: 12/04/20 18:17 - History of Present Illness Initial comments: Patient is a pleasant 35-year-old female presenting to the emergency Department with lower abdominal pain/pelvic pain. Patient thought it may be her kidney but points to the left lower abdomen/pelvis. Patient states symptoms have been present for over a week now. Patient does have history of similar symptoms previously. Patient does have dysuria. Symptoms do worsen with urination. Patient does have some mild white discharge. No fevers. Patient does have associated nausea. (Maverick Rolle) - Related Data Home Medications Medication Instructions Recorded Confirmed Ibuprofen [Motrin Ib] 400 mg PO Q12H PRN 12/04/20 12/04/20 Previous Rx's Medication Instructions Recorded Ibuprofen [Motrin] 600 mg PO Q6HR PRN #20 tab 12/04/20 Sulfamethox-Tmp 800-160Mg [Bactrim 1 each PO Q12HR #20 tab 12/04/20 DS 800-160 mg] Allergies Allergy/AdvReac Type Severity Reaction Status Date / Time adhesive tape Allergy Rash/Hives Verified 12/04/20 19:47 Review of Systems ROS Other: All systems not noted in ROS Statement are negative. <Jonathan Schmitz P - Last Filed: 12/04/20 19:27> ROS Other: All systems not noted in ROS Statement are negative. Constitutional: Denies: fever Eyes: Denies: eye pain ENT: Denies: ear pain Respiratory: Denies: cough Cardiovascular: Denies: chest pain Endocrine: Denies: fatigue Gastrointestinal: Reports: as per HPI, nausea Genitourinary: Reports: dysuria Musculoskeletal: Denies: back pain Skin: Denies: rash Neurological: Denies: weakness <Maverick Rolle - Last Filed: 12/04/20 20:36> ROS Statement: Those systems with pertinent positive or pertinent negative responses have been documented in the HPI. Past Medical History Past Medical History: GERD/Reflux, Osteoarthritis (OA) Additional Past Medical History / Comment(s): migraines, bowel obstruction, frequent UTI's, History of Any Multi-Drug Resistant Organisms: None Reported Past Surgical History: Cholecystectomy, Tubal Ligation Additional Past Surgical History / Comment(s): right oopherectomy Past Anesthesia/Blood Transfusion Reactions: No Reported Reaction Past Psychological History: Anxiety, Bipolar Smoking Status: Never smoker Past Alcohol Use History: None Reported Past Drug Use History: None Reported - Past Family History Father Family Medical History: Cancer Mother Family Medical History: Diabetes Mellitus <Maverick Rolle - Last Filed: 12/04/20 20:36> General Exam External exam: Present: normal external exam. Absent: erythema, swelling, lesions, lacerations, ecchymosis Speculum exam: Present: vaginal discharge (minimal white discharge). Absent: normal speculum exam, erythema, cervical discharge, vaginal bleeding, foreign body, tissue, laceration By manual exam: Present: adnexal tenderness (L side tenderness). Absent: cervical motion tenderness, adnexal mass, uterine enlargement, uterine tenderness <Jonathan Schmitz - Last Filed: 12/04/20 19:27> Limitations: no limitations General appearance: alert, in no apparent distress Head exam: Present: normocephalic Eye exam: Present: normal appearance Neck exam: Present: normal inspection Respiratory exam: Present: normal lung sounds bilaterally Cardiovascular Exam: Present: regular rate, normal rhythm Expanded Peripheral pulses: 2+: Dorsalis Pedis (R), Dorsalis Pedis (L) GI/Abdominal exam: Present: soft, tenderness (Mild tenderness suprapubic region, more so on the left). Absent: distended Extremities exam: Present: normal inspection Back exam: Present: normal inspection. Absent: CVA tenderness (L) Neurological exam: Present: alert Psychiatric exam: Present: normal affect, normal mood Skin exam: Present: normal color <Maverick Rolle - Last Filed: 12/04/20 20:36> Course Vital Signs 12/04/20 12/04/20 18:06 19:34 Temperature 97.9 F Pulse Rate 80 60 Respiratory 18 18 Rate Blood Pressure 121/85 115/72 O2 Sat by Pulse 98 99 Oximetry Medical Decision Making - Radiology Data Radiology results: report reviewed (Pelvic ultrasound shows small amount of endometrial fluid. No mass. Small amount of fluid in the cul-de-sac. No sign of torsion on the left. Right ovary not seen.), image reviewed (Abdominal x-ray shows nonacute abdomen.) <Maverick Rolle - Last Filed: 12/04/20 20:36> - Medical Decision Making Patient reevaluated and resting comfortably in bed. Patient updated on results. Patient is comfortable with discharge. Patient does request medication for inflammation. Patient does have symptoms consistent with urinary tract infection and would like medication for this. Urine culture ordered. Patient updated on pending cultures for GC and chlamydia. Patient states she is in the process of scheduling appointment with her [employer]. (Maverick Rolle) - Lab Data Lab Results 12/04/20 12/04/20 12/04/20 Range/Units 18:45 18:45 19:37 Urine Color Light Yellow Urine Appearance Cloudy H (Clear) Urine pH 7.0 (5.0-8.0) Ur Specific [place] 1.016 (1.001-1.035) Urine Protein Negative (Negative) Urine Glucose (UA) Negative (Negative) Urine Ketones Negative (Negative) Urine Blood Negative (Negative) Urine Nitrite Negative (Negative) Urine Bilirubin Negative (Negative) Urine Urobilinogen <2.0 (<2.0) mg/dL Ur Leukocyte Esterase Negative (Negative) Urine RBC 2 (0-5) /hpf Urine WBC 8 H (0-5) /hpf Ur Squamous Epith Cells 32 H (0-4) /hpf Urine Bacteria Rare H (None) /hpf Urine Mucus Few H (None) /hpf Urine HCG, Qual Not Detected (Not Detectd) Trichomonas Ag (Rapid) Negative (Negative) Disposition <Jonathan Schmitz - Last Filed: 12/04/20 19:27> Is patient prescribed a controlled substance at d/c from ED?: No Time of Disposition: 20:33 <Maverick Rolle - Last Filed: 12/04/20 20:36> Clinical Impression: Pelvic pain, Cystitis Disposition: HOME SELF-CARE Condition: Stable Instructions (If sedation given, give patient instructions): Pelvic Pain (ED), Urinary Tract Infection in Women (ED) Additional Instructions: Please follow-up with primary care physician as well as your [employer] in the next day or 2 for recheck. Return for increased pain, fevers, worsening or changing symptoms or other concerns. Have your doctor follow-up with culture results. Prescriptions have been sent to [facility] Prescriptions: Sulfamethox-Tmp 800-160Mg [Bactrim DS 800-160 mg] 1 each PO Q12HR #20 tab Ibuprofen [Motrin] 600 mg PO Q6HR PRN #20 tab PRN Reason: Pain Referrals: [facility] [Primary Care Provider] - 1-2 days
[2020-12-04 18:59] LABS: Appearance,Urine Cloudy (Clear); Bacteria,Urine Rare /hpf; Bilirubin,Urine Negative (Negative); Blood,Urine Negative (Negative); Color,Urine Light Yellow; Glucose,Urine (UA) Negative (Negative); Ketones,Urine Negative (Negative); Leukocyte Esterase,Urine Negative (Negative); Mucus,Urine Few /hpf; Nitrite,Urine Negative (Negative); Protein,Urine Negative (Negative); RBC,Urine 2 /hpf (0-5); Specific Gravity,Urine 1.016 (1.001-1.035); Squamous Epithelial Cell,Urine 32 /hpf (0-4); Urobilinogen,Urine <2.0 mg/dL (<2.0); WBC,Urine 8 /hpf (0-5)
--- NOTE | 2020-12-04 19:50 | US ---
EXAMINATION TYPE: US transvaginal DATE OF EXAM: 12/04/2020 COMPARISON: CT, US CLINICAL HISTORY: pain. Pain x 1 week. Slightly limited history. Patient claims she had right oophore ctomy, possible ablation, 2 C-Sections. LMP unknown. TECHNIQUE: Transvaginal (TV). Date of LMP: Unknown EXAM MEASUREMENTS: Uterus: 6.7 x 5.1 x 4.1 cm Endometrial Stripe: Measured at 1.1 cm Right Ovary: Removed Left Ovary: 4.0 x 3.0 x 2.0 cm 1. Uterus: Retroverted Complex fluid-appearing area in endometrium 2.4 x 1.6 x 0.4 cm. 2. Endometrium: Measured at 1.1 cm. Complex area seen within. 3. Right Ovary: Removed. 4. Left Ovary: Measures slightly enlarged. Septated hypoechoic-anechoic area seen measuring 1.8 x 1. 4 x 1.4 cm. Spectral, color and waveform doppler imaging shows arterial and venous flow within the left ovary. Right ovary not visualized. 5. Bilateral Adnexa: Appear wnl. 6. Posterior cul-de-sac: Fluid visualized. IMPRESSION: Small amount of endometrial fluid. No endometrial mass seen. No adnexal mass. Small amount of free fl uid in the cul-de-sac. No sign of left ovarian torsion. Right ovary not seen.
--- NOTE | 2020-12-04 20:03 | XR ---
EXAMINATION TYPE: XR abdomen 1V DATE OF EXAM: 12/04/2020 COMPARISON: NONE HISTORY: Flank pain TECHNIQUE: 2 views upright FINDINGS: There is no sign of intestinal obstruction or pneumoperitoneum. There are clips from cholec ystectomy. There are no pathologic calcifications over the kidneys. Lung bases are clear. There is no evidence of abdominal mass. IMPRESSION: Nonacute abdomen.
[2020-12-04] MEDS ORDERED: IBUPROFEN 600 MG STARTER PACK 4 TAB BTL PO STA (20:36)
[2020-12-04 21:09] VITALS: BP 115/51; PULSE 72; RESP 16; TEMP 98.4
== END 2020-12-04 21:09 | disposition home or self-care (01) ==
LOC: EC 18:02
DX: N30.90 Cystitis, unspecified without hematuria (principal); M19.90 Unspecified osteoarthritis, unspecified site; Z91.048 Other nonmedicinal substance allergy status; Z90.49 Acquired absence of other specified parts of digestive tract; Z98.51 Tubal ligation status; Z90.721 Acquired absence of ovaries, unilateral; Z86.69 Personal history of other diseases of the nervous system and sense organs
CPT/HCPCS: 74018; 76830; 81001; 81025; 87086; 87491; 87591; 87808; 93976; 99284

== ENCOUNTER 2021-05-20 19:36 | Emergency (ER) | payer OTHER ==
[2021-05-20] MEDS ORDERED: SODIUM CHLORIDE 0.9% 1,000 ML IV STA (21:40)
[2021-05-20 21:54] LABS: Basophils % (A) 0 %; Eosinophils % (A) 0 %; HCT 35.9 % (34.0-46.0); HGB 12.4 gm/dL (11.4-16.0); Lymphocytes # (A) 1.8 k/uL (1.0-4.8); Lymphocytes % (A) 31 %; MCH 30.7 pg (25.0-35.0); MCHC 34.5 g/dL (31.0-37.0); Mean Platelet Volume 6.4; Monocytes # (A) 0.4 k/uL (0-1.0); Monocytes % (A) 7 %; Neutrophils # (A) 3.5 k/uL (1.3-7.7); Neutrophils % (A) 60 %; Platelet Count 242 k/uL (150-450); RBC 4.04 m/uL (3.80-5.40); RDW 13.2 % (11.5-15.5); WBC 5.8 k/uL (3.8-10.6)
[2021-05-20 22:02] LABS: ALT 20 U/L (4-34); AST 23 U/L (14-36); African American GFR (CKD) >90 (>60 ml/min/1.73 sqM); Alkaline Phosphatase 63 U/L (38-126); Amylase 57 U/L (30-110); Anion Gap 6 mmol/L; Blood Urea Nitrogen 10 mg/dL (7-17); Calcium 8.4 mg/dL (8.4-10.2); Carbon Dioxide 28 mmol/L (22-30); Chloride 106 mmol/L (98-107); Glucose 98 mg/dL (74-99); Lipase 197 U/L (23-300); Non-African American GFR(CKD) >90 (>60 ml/min/1.73 sqM); Potassium 3.7 mmol/L (3.5-5.1); Sodium 140 mmol/L (137-145); Total Bilirubin 0.1 mg/dL (0.2-1.3); Total Protein 6.5 g/dL (6.3-8.2)
[2021-05-20 22:15] LABS: Amorphous Sediment,Urine Rare /hpf; Appearance,Urine Cloudy (Clear); Bilirubin,Urine Negative (Negative); Blood,Urine Negative (Negative); Color,Urine Yellow; Glucose,Urine (UA) Negative (Negative); Ketones,Urine Trace (Negative); Leukocyte Esterase,Urine Negative (Negative); Mucus,Urine Many /hpf; Nitrite,Urine Negative (Negative); PH, Urine 5.5 (5.0-8.0); Protein,Urine Trace (Negative); RBC,Urine 2 /hpf (0-5); Specific Gravity,Urine 1.033 (1.001-1.035); Squamous Epithelial Cell,Urine 10 /hpf (0-4); WBC,Urine 2 /hpf (0-5)
[2021-05-20] MEDS ORDERED: KETOROLAC 15 MG/ML 1 ML VIAL IVP STA (22:31)
--- NOTE | 2021-05-20 23:08 | CT ---
EXAMINATION TYPE: CT abdomen pelvis w con DATE OF EXAM: 05/20/2021 COMPARISON: 11/12/2020 HISTORY: LEFT ABD PAIN CT DLP: 1772.7 mGycm Automated exposure control for dose reduction was used. CONTRAST: Performed with IV Contrast, patient injected with 100 mL of Isovue 300. Lung bases are clear. There is no pleural effusion. Heart size is normal. Liver spleen stomach pancre as appear intact. Bile ducts are not dilated. There are clips from cholecystectomy. There is no adrenal mass. Kidneys show satisfactory contrast opacification. There is no hydronephrosi s. There is no retroperitoneal adenopathy. Appendix is posterior and appears normal. Bladder distends smoothly. There is no inguinal hernia. There is no free fluid in the pelvis. Uterus is retroverted. There is no mesenteric edema. There is no ascites or free air. There is no bowel obstruction. Delayed images show normal renal excretion. The lumbar vertebra have normal spacing and alignment. There is no compression fracture. The posterio r elements are intact. Bony pelvis is intact. The hip joints are intact. IMPRESSION: Negative CT scan of the abdomen pelvis. Normal appendix.
--- NOTE | 2021-05-20 23:48 | ED ---
General Adult HPI - General Chief complaint: Abdominal Pain Stated complaint: L abd pain Time Seen by Provider: 05/20/21 21:13 Source: patient, RN notes reviewed Mode of arrival: ambulatory Limitations: no limitations - History of Present Illness Initial comments: 35-year-old female presents to the emergency room for a chief complaint of left lower quadrant abdominal pain. Patient reports she has had this for over 2 weeks now. Patient states it is a constant pain. It does not radiate anywhere. She denies nausea vomiting diarrhea. Denies fevers. Patient did see her [employer] and had STD testing and a pelvic exam which was unremarkable.Patient has no other complaints at this time including shortness of breath, chest pain, nausea or vomiting, headache, or visual changes. - Related Data Home Medications Medication Instructions Recorded Confirmed Ibuprofen [Motrin Ib] 400 mg PO Q12H PRN 12/04/20 12/04/20 Previous Rx's Medication Instructions Recorded Ibuprofen [Motrin] 600 mg PO Q6HR PRN #20 tab 12/04/20 Sulfamethox-Tmp 800-160Mg [Bactrim 1 each PO Q12HR #20 tab 12/04/20 DS 800-160 mg] Allergies Allergy/AdvReac Type Severity Reaction Status Date / Time adhesive tape Allergy Rash/Hives Verified 05/20/21 20:05 Review of Systems ROS Statement: Those systems with pertinent positive or pertinent negative responses have been documented in the HPI. ROS Other: All systems not noted in ROS Statement are negative. Past Medical History Past Medical History: GERD/Reflux, Osteoarthritis (OA) Additional Past Medical History / Comment(s): migraines, bowel obstruction, frequent UTI's, History of Any Multi-Drug Resistant Organisms: None Reported Past Surgical History: Cholecystectomy, Tubal Ligation Additional Past Surgical History / Comment(s): right oopherectomy Past Anesthesia/Blood Transfusion Reactions: No Reported Reaction Past Psychological History: Anxiety, Bipolar Smoking Status: Never smoker Past Alcohol Use History: None Reported Past Drug Use History: None Reported - Past Family History Father Family Medical History: Cancer Mother Family Medical History: Diabetes Mellitus General Exam Limitations: no limitations General appearance: alert, in no apparent distress Head exam: Present: atraumatic, normocephalic, normal inspection Eye exam: Present: normal appearance, PERRL, EOMI. Absent: scleral icterus, conjunctival injection, periorbital swelling ENT exam: Present: normal exam, mucous membranes moist Neck exam: Present: normal inspection, full ROM. Absent: tenderness, meningismus, lymphadenopathy Respiratory exam: Present: normal lung sounds bilaterally. Absent: respiratory distress, wheezes, rales, rhonchi, stridor Cardiovascular Exam: Present: regular rate, normal rhythm, normal heart sounds. Absent: systolic murmur, diastolic murmur, rubs, gallop, clicks GI/Abdominal exam: Present: soft, tenderness (Minimal tenderness in the left l ower quadrant without guarding or rebound.), normal bowel sounds. Absent: distended, guarding, rebound, rigid Back exam: Absent: CVA tenderness (R), CVA tenderness (L) Neurological exam: Present: alert Course Vital Signs 05/20/21 20:02 Temperature 98.7 F Pulse Rate 72 Respiratory 18 Rate Blood Pressure 149/84 O2 Sat by Pulse 98 Oximetry Medical Decision Making - Medical Decision Making vitals stable. CBC CMP unremarkable. Urinalysis is unremarkable. CT abdomen and pelvis was obtained which was negative. Normal appendix. Patient was given Toradol and had significant improvement in symptoms. Patient sleeping in the emergency room. Patient will be discharged home in stable condition. I did recommend she follow up with GI, could benefit from colonoscopy. She will return here for any worsening symptoms. - Lab Data Result diagrams: 05/20/21 21:42 05/20/21 21:42 Lab Results 05/20/21 05/20/21 05/20/21 Range/Units 21:42 21:42 21:42 WBC 5.8 (3.8-10.6) k/uL RBC 4.04 (3.80-5.40) m/uL Hgb 12.4 (11.4-16.0) gm/dL Hct 35.9 (34.0-46.0) % MCV 89.0 (80.0-100.0) fL MCH 30.7 (25.0-35.0) pg MCHC 34.5 (31.0-37.0) g/dL RDW 13.2 (11.5-15.5) % Plt Count 242 (150-450) k/uL MPV 6.4 Neutrophils % 60 % Lymphocytes % 31 % Monocytes % 7 % Eosinophils % 0 % Basophils % 0 % Neutrophils # 3.5 (1.3-7.7) k/uL Lymphocytes # 1.8 (1.0-4.8) k/uL Monocytes # 0.4 (0-1.0) k/uL Eosinophils # 0.0 (0-0.7) k/uL Basophils # 0.0 (0-0.2) k/uL Sodium 140 (137-145) mmol/L Potassium 3.7 (3.5-5.1) mmol/L Chloride 106 (98-107) mmol/L Carbon Dioxide 28 (22-30) mmol/L Anion Gap 6 mmol/L BUN 10 (7-17) mg/dL Creatinine 0.59 (0.52-1.04) mg/dL Est GFR (CKD-EPI)AfAm >90 (>60 ml/min/1.73 sqM) Est GFR (CKD-EPI)NonAf >90 (>60 ml/min/1.73 sqM) Glucose 98 (74-99) mg/dL Calcium 8.4 (8.4-10.2) mg/dL Total Bilirubin 0.1 L (0.2-1.3) mg/dL AST 23 (14-36) U/L ALT 20 (4-34) U/L Alkaline Phosphatase 63 (38-126) U/L Total Protein 6.5 (6.3-8.2) g/dL Albumin 4.0 (3.5-5.0) g/dL Amylase 57 (30-110) U/L Lipase 197 (23-300) U/L Urine Color Yellow Urine Appearance Cloudy H (Clear) Urine pH 5.5 (5.0-8.0) Ur Specific [place] 1.033 (1.001-1.035) Urine Protein Trace H (Negative) Urine Glucose (UA) Negative (Negative) Urine Ketones Trace H (Negative) Urine Blood Negative (Negative) Urine Nitrite Negative (Negative) Urine Bilirubin Negative (Negative) Urine Urobilinogen 2.0 (<2.0) mg/dL Ur Leukocyte Esterase Negative (Negative) Urine RBC 2 (0-5) /hpf Urine WBC 2 (0-5) /hpf Ur Squamous Epith Cells 10 H (0-4) /hpf Amorphous Sediment Rare H (None) /hpf Urine Mucus Many H (None) /hpf Urine HCG, Qual (Not Detectd) 06/21/21 Range/Units 21:42 WBC (3.8-10.6) k/uL RBC (3.80-5.40) m/uL Hgb (11.4-16.0) gm/dL Hct (34.0-46.0) % MCV (80.0-100.0) fL MCH (25.0-35.0) pg MCHC (31.0-37.0) g/dL RDW (11.5-15.5) % Plt Count (150-450) k/uL MPV Neutrophils % % Lymphocytes % % Monocytes % % Eosinophils % % Basophils % % Neutrophils # (1.3-7.7) k/uL Lymphocytes # (1.0-4.8) k/uL Monocytes # (0-1.0) k/uL Eosinophils # (0-0.7) k/uL Basophils # (0-0.2) k/uL Sodium (137-145) mmol/L Potassium (3.5-5.1) mmol/L Chloride (98-107) mmol/L Carbon Dioxide (22-30) mmol/L Anion Gap mmol/L BUN (7-17) mg/dL Creatinine (0.52-1.04) mg/dL Est GFR (CKD-EPI)AfAm (>60 ml/min/1.73 sqM) Est GFR (CKD-EPI)NonAf (>60 ml/min/1.73 sqM) Glucose (74-99) mg/dL Calcium (8.4-10.2) mg/dL Total Bilirubin (0.2-1.3) mg/dL AST (14-36) U/L ALT (4-34) U/L Alkaline Phosphatase (38-126) U/L Total Protein (6.3-8.2) g/dL Albumin (3.5-5.0) g/dL Amylase (30-110) U/L Lipase (23-300) U/L Urine Color Urine Appearance (Clear) Urine pH (5.0-8.0) Ur Specific [place] (1.001-1.035) Urine Protein (Negative) Urine Glucose (UA) (Negative) Urine Ketones (Negative) Urine Blood (Negative) Urine Nitrite (Negative) Urine Bilirubin (Negative) Urine Urobilinogen (<2.0) mg/dL Ur Leukocyte Esterase (Negative) Urine RBC (0-5) /hpf Urine WBC (0-5) /hpf Ur Squamous Epith Cells (0-4) /hpf Amorphous Sediment (None) /hpf Urine Mucus (None) /hpf Urine HCG, Qual Not Detected (Not Detectd) Disposition Clinical Impression: Abdominal pain Disposition: HOME SELF-CARE Condition: Good Instructions (If sedation given, give patient instructions): Abdominal Pain (ED) Additional Instructions: Please follow up with primary care or GI. In the meantime take Motrin or Tylenol for pain. Return to the emergency room for any worsening symptoms or fevers. Is patient prescribed a controlled substance at d/c from ED?: No Referrals: [facility] [Primary Care Provider] - 1-2 days Shay Dorantes MD [STAFF PHYSICIAN] - 1-2 days Time of Disposition: 23:48
[2021-05-21 00:26] VITALS: BP 124/82; PULSE 60; RESP 16; TEMP 97.7
== END 2021-05-21 00:26 | disposition home or self-care (01) ==
LOC: EC 19:36
DX: R10.32 Left lower quadrant pain (principal); K21.9 Gastro-esophageal reflux disease without esophagitis; M19.90 Unspecified osteoarthritis, unspecified site; Z90.49 Acquired absence of other specified parts of digestive tract; Z98.51 Tubal ligation status
CPT/HCPCS: 36415; 80053; 82150; 83690; 85025; 81001; 81025; 74177; 99284; 96374; J1885; Q9967

== ENCOUNTER 2021-05-26 17:19 | Emergency (ER) | payer OTHER ==
[2021-05-26 17:24] VITALS: BP 137/89; PULSE 74; RESP 16; TEMP 98.1
[2021-05-26] MEDS ORDERED: MORPHINE SULFATE 4 MG/ML SYRINGE IV STA (17:40)
[2021-05-26] MEDS ORDERED: SODIUM CHLORIDE 0.9% 1,000 ML IV STA (17:40)
[2021-05-26] MEDS ORDERED: ONDANSETRON 4 MG/2 ML VIAL IVP STA (17:40)
[2021-05-26 17:56] LABS: Appearance,Urine Clear (Clear); Bilirubin,Urine Negative (Negative); Blood,Urine Negative (Negative); Color,Urine Yellow; Glucose,Urine (UA) Negative (Negative); Ketones,Urine Negative (Negative); Leukocyte Esterase,Urine Negative (Negative); Nitrite,Urine Negative (Negative); Protein,Urine Trace (Negative); Urobilinogen,Urine <2.0 mg/dL (<2.0)
[2021-05-26 18:10] LABS: Basophils % (A) 0 %; Eosinophils % (A) 0 %; HCT 37.5 % (34.0-46.0); HGB 12.8 gm/dL (11.4-16.0); Lymphocytes # (A) 1.7 k/uL (1.0-4.8); Lymphocytes % (A) 27 %; MCH 30.2 pg (25.0-35.0); Mean Platelet Volume 6.7; Monocytes # (A) 0.4 k/uL (0-1.0); Monocytes % (A) 6 %; Neutrophils % (A) 64 %; Platelet Count 243 k/uL (150-450); RBC 4.22 m/uL (3.80-5.40); RDW 13.5 % (11.5-15.5); WBC 6.3 k/uL (3.8-10.6)
[2021-05-26 18:20] LABS: ALT 25 U/L (4-34); AST 25 U/L (14-36); African American GFR (CKD) >90 (>60 ml/min/1.73 sqM); Albumin 4.4 g/dL (3.5-5.0); Alkaline Phosphatase 52 U/L (38-126); Amylase 57 U/L (30-110); Anion Gap 10 mmol/L; Blood Urea Nitrogen 15 mg/dL (7-17); Calcium 9.2 mg/dL (8.4-10.2); Carbon Dioxide 25 mmol/L (22-30); Chloride 104 mmol/L (98-107); Glucose 100 mg/dL (74-99); Lipase 176 U/L (23-300); Non-African American GFR(CKD) >90 (>60 ml/min/1.73 sqM); Potassium 4.1 mmol/L (3.5-5.1); Sodium 139 mmol/L (137-145); Total Bilirubin <0.1 mg/dL (0.2-1.3); Total Protein 6.9 g/dL (6.3-8.2)
--- NOTE | 2021-05-26 18:31 | XR ---
EXAMINATION TYPE: XR KUB DATE OF EXAM: 05/26/2021 COMPARISON: 12/04/2020 HISTORY: Abdominal pain TECHNIQUE: 2 views upright FINDINGS: Bowel gas pattern is normal. There is no sign of intestinal obstruction or pneumoperitoneum . Fecal pattern is normal. There is no sign of a mass. Lung bases are clear. IMPRESSION: Nonacute abdomen. No change.
[2021-05-26] MEDS ORDERED: ACET/COD 300 MG/30 MG STARTER PACK 6 TAB BTL PO STA (18:37)
--- NOTE | 2021-05-26 18:37 | ED ---
Abdominal Pain HPI - General Chief Complaint: Abdominal Pain Stated Complaint: Left side lower abd pain Time Seen by Provider: 05/26/21 17:31 Source: patient, RN notes reviewed Mode of arrival: ambulatory Limitations: no limitations - History of Present Illness Initial Comments: Patient is a 35-year-old female that presents to the emergency department c omplaining of left lower quadrant abdominal pain. She notes that she was seen several days ago emergency Department for the same thing and was discharged home after a negative computed tomography scan and was told to follow up with gastroenterology for a colonoscopy. Patient notes that the pain has continued and she has not followed up with primary care. Patient notes that she tried using a pad aggressive pain which helped very minimally. She notes that her pain is a 7 out of 10 with no relief from any home medications. She was unable to give any aggravating or alleviating factors. Patient did not appear to be in any pain or discomfort while laying in bed during the exam and interview. She denied any chest pain shortness breath headache nausea vomiting diarrhea constipation fever fatigue chills. - Related Data Home Medications Medication Instructions Recorded Confirmed Ibuprofen [Motrin Ib] 400 mg PO Q12H PRN 12/04/20 12/04/20 Previous Rx's Medication Instructions Recorded Ibuprofen [Motrin] 600 mg PO Q6HR PRN #20 tab 12/04/20 Sulfamethox-Tmp 800-160Mg [Bactrim 1 each PO Q12HR #20 tab 12/04/20 DS 800-160 mg] Allergies Allergy/AdvReac Type Severity Reaction Status Date / Time adhesive tape Allergy Rash/Hives Verified 05/26/21 17:23 Review of Systems ROS Statement: Those systems with pertinent positive or pertinent negative responses have been documented in the HPI. ROS Other: All systems not noted in ROS Statement are negative. Past Medical History Past Medical History: GERD/Reflux, Osteoarthritis (OA) Additional Past Medical History / Comment(s): migraines, bowel obstruction, frequent UTI's, History of Any Multi-Drug Resistant Organisms: None Reported Past Surgical History: Cholecystectomy, Tubal Ligation Additional Past Surgical History / Comment(s): right oopherectomy Past Anesthesia/Blood Transfusion Reactions: No Reported Reaction Past Psychological History: Anxiety, Bipolar Smoking Status: Never smoker Past Alcohol Use History: None Reported Past Drug Use History: None Reported - Past Family History Father Family Medical History: Cancer Mother Family Medical History: Diabetes Mellitus General Exam Limitations: no limitations General appearance: alert, in no apparent distress, obese Head exam: Present: atraumatic, normocephalic, normal inspection Eye exam: Present: normal appearance, PERRL, EOMI. Absent: scleral icterus, conjunctival injection, periorbital swelling Neck exam: Present: normal inspection Respiratory exam: Present: normal lung sounds bilaterally. Absent: respiratory distress, wheezes, rales, rhonchi, stridor Cardiovascular Exam: Present: regular rate, normal rhythm, normal heart sounds. Absent: systolic murmur, diastolic murmur, rubs, gallop, clicks GI/Abdominal exam: Present: soft, tenderness (Left lower quadrant), normal bowel sounds. Absent: distended, guarding, rebound, rigid Extremities exam: Present: normal inspection, full ROM, normal capillary refill. Absent: tenderness, pedal edema, joint swelling, calf tenderness Neurological exam: Present: alert, oriented X3 Psychiatric exam: Present: normal affect, normal mood Skin exam: Present: warm, dry, intact, normal color. Absent: rash Course Vital Signs 05/26/21 17:21 Temperature 98.1 F Pulse Rate 74 Respiratory 16 Rate Blood Pressure 137/89 O2 Sat by Pulse 98 Oximetry Medical Decision Making - Medical Decision Making 35-year-old male complaining of left lower quadrant pain that was seen several days ago for the same issue. Labs, KUB, 1 L normal saline, 4 mg of morphine, 4 mg of Zofran ordered. Labs unremarkable compared to previous studies. X-ray negative for any acute process. Case discussed with Dr. Davila, patient can discharge home with follow-up to primary care and GI specialist. Patient is aware that labs and imaging are negative and that follow-up is the ne xt step in evaluation. - Lab Data Result diagrams: 05/26/21 17:47 05/26/21 17:47 Lab Results 05/26/21 05/26/21 05/26/21 Range/Units 17:47 17:47 17:47 WBC 6.3 (3.8-10.6) k/uL RBC 4.22 (3.80-5.40) m/uL Hgb 12.8 (11.4-16.0) gm/dL Hct 37.5 (34.0-46.0) % MCV 89.0 (80.0-100.0) fL MCH 30.2 (25.0-35.0) pg MCHC 34.0 (31.0-37.0) g/dL RDW 13.5 (11.5-15.5) % Plt Count 243 (150-450) k/uL MPV 6.7 Neutrophils % 64 % Lymphocytes % 27 % Monocytes % 6 % Eosinophils % 0 % Basophils % 0 % Neutrophils # 4.0 (1.3-7.7) k/uL Lymphocytes # 1.7 (1.0-4.8) k/uL Monocytes # 0.4 (0-1.0) k/uL Eosinophils # 0.0 (0-0.7) k/uL Basophils # 0.0 (0-0.2) k/uL Sodium (137-145) mmol/L Potassium (3.5-5.1) mmol/L Chloride (98-107) mmol/L Carbon Dioxide (22-30) mmol/L Anion Gap mmol/L BUN (7-17) mg/dL Creatinine (0.52-1.04) mg/dL Est GFR (CKD-EPI)AfAm (>60 ml/min/1.73 sqM) Est GFR (CKD-EPI)NonAf (>60 ml/min/1.73 sqM) Glucose (74-99) mg/dL Plasma Lactic Acid Jordy (0.7-2.0) mmol/L Calcium (8.4-10.2) mg/dL Total Bilirubin (0.2-1.3) mg/dL AST (14-36) U/L ALT (4-34) U/L Alkaline Phosphatase (38-126) U/L Total Protein (6.3-8.2) g/dL Albumin (3.5-5.0) g/dL Amylase (30-110) U/L Lipase (23-300) U/L Urine Color Yellow Urine Appearance Clear (Clear) Urine pH 6.0 (5.0-8.0) Ur Specific [place] 1.040 H (1.001-1.035) Urine Protein Trace H (Negative) Urine Glucose (UA) Negative (Negative) Urine Ketones Negative (Negative) Urine Blood Negative (Negative) Urine Nitrite Negative (Negative) Urine Bilirubin Negative (Negative) Urine Urobilinogen <2.0 (<2.0) mg/dL Ur Leukocyte Esterase Negative (Negative) Urine HCG, Qual Not Detected (Not Detectd) 05/26/21 05/26/21 Range/Units 17:47 17:47 WBC (3.8-10.6) k/uL RBC (3.80-5.40) m/uL Hgb (11.4-16.0) gm/dL Hct (34.0-46.0) % MCV (80.0-100.0) fL MCH (25.0-35.0) pg MCHC (31.0-37.0) g/dL RDW (11.5-15.5) % Plt Count (150-450) k/uL MPV Neutrophils % % Lymphocytes % % Monocytes % % Eosinophils % % Basophils % % Neutrophils # (1.3-7.7) k/uL Lymphocytes # (1.0-4.8) k/uL Monocytes # (0-1.0) k/uL Eosinophils # (0-0.7) k/uL Basophils # (0-0.2) k/uL Sodium 139 (137-145) mmol/L Potassium 4.1 (3.5-5.1) mmol/L Chloride 104 (98-107) mmol/L Carbon Dioxide 25 (22-30) mmol/L Anion Gap 10 mmol/L BUN 15 (7-17) mg/dL Creatinine 0.58 (0.52-1.04) mg/dL Est GFR (CKD-EPI)AfAm >90 (>60 ml/min/1.73 sqM) Est GFR (CKD-EPI)NonAf >90 (>60 ml/min/1.73 sqM) Glucose 100 H (74-99) mg/dL Plasma Lactic Acid Jordy 1.0 (0.7-2.0) mmol/L Calcium 9.2 (8.4-10.2) mg/dL Total Bilirubin <0.1 L (0.2-1.3) mg/dL AST 25 (14-36) U/L ALT 25 (4-34) U/L Alkaline Phosphatase 52 (38-126) U/L Total Protein 6.9 (6.3-8.2) g/dL Albumin 4.4 (3.5-5.0) g/dL Amylase 57 (30-110) U/L Lipase 176 (23-300) U/L Urine Color Urine Appearance (Clear) Urine pH (5.0-8.0) Ur Specific [place] (1.001-1.035) Urine Protein (Negative) Urine Glucose (UA) (Negative) Urine Ketones (Negative) Urine Blood (Negative) Urine Nitrite (Negative) Urine Bilirubin (Negative) Urine Urobilinogen (<2.0) mg/dL Ur Leukocyte Esterase (Negative) Urine HCG, Qual (Not Detectd) - Radiology Data Radiology results: report reviewed, image reviewed KUB: Nonacute abdomen. No change. Disposition Clinical Impression: Abdominal pain Disposition: HOME SELF-CARE Condition: Stable Instructions (If sedation given, give patient instructions): Abdominal Pain (ED) Additional Instructions: Please return to the Emergency Department if symptoms worsen or any other concerns. Follow-up with primary care soon as possible. Follow-up with GI as soon as possible to get further evaluation and testing. Take at home medications as prescribed. Avoid smoking marijuana as it can cause upset stomach nausea vomiting and GI discomfort. Is patient prescribed a controlled substance at d/c from ED?: No Referrals: [facility] [Primary Care Provider] - 1-2 days Time of Disposition: 18:37
== END 2021-05-26 18:45 | disposition home or self-care (01) ==
LOC: EC 17:19
DX: R10.32 Left lower quadrant pain (principal); K21.9 Gastro-esophageal reflux disease without esophagitis; M19.90 Unspecified osteoarthritis, unspecified site; F31.9 Bipolar disorder, unspecified; F41.9 Anxiety disorder, unspecified; G43.909 Migraine, unspecified, not intractable, without status migrainosus; Z87.440 Personal history of urinary (tract) infections; Z79.1 Long term (current) use of non-steroidal anti-inflammatories (NSAID); Z90.49 Acquired absence of other specified parts of digestive tract
CPT/HCPCS: 36415; 80053; 82150; 83605; 83690; 85025; 81003; 81025; 74018; 99284; 96374; 96375; J2270; J2405

== ENCOUNTER 2021-08-08 11:56 | Emergency (ER) | payer OTHER ==
[2021-08-08 12:35] VITALS: TEMP 98.1
[2021-08-08] MEDS ORDERED: FAMOTIDINE 20 MG/2 ML VIAL IV STA (13:15)
[2021-08-08] MEDS ORDERED: ONDANSETRON 4 MG/2 ML VIAL IVP STA (13:15)
[2021-08-08] MEDS ORDERED: MAG HYDROX/AL HYDROX/SIMETH 30 ML, HYOSCYAMINE ELIXIR 10 ML, LIDOCAINE VISCOUS 2% 10 ML PO STA ×3 (13:15)
[2021-08-08] MEDS ORDERED: SODIUM CHLORIDE 0.9% 1,000 ML IV STA (13:15)
[2021-08-08 13:58] LABS: Basophils % (A) 0 %; Eosinophils % (A) 0 %; HCT 40.1 % (34.0-46.0); HGB 13.7 gm/dL (11.4-16.0); Lymphocytes # (A) 1.4 k/uL (1.0-4.8); Lymphocytes % (A) 28 %; MCH 31.3 pg (25.0-35.0); MCHC 34.3 g/dL (31.0-37.0); MCV 91.3 fL (80.0-100.0); Mean Platelet Volume 7.2; Monocytes # (A) 0.4 k/uL (0-1.0); Monocytes % (A) 7 %; Neutrophils # (A) 3.2 k/uL (1.3-7.7); Neutrophils % (A) 63 %; Platelet Count 245 k/uL (150-450); RBC 4.39 m/uL (3.80-5.40); RDW 13.4 % (11.5-15.5); WBC 5.1 k/uL (3.8-10.6)
[2021-08-08 14:02] LABS: Appearance,Urine Cloudy (Clear); Bilirubin,Urine Negative (Negative); Blood,Urine Negative (Negative); Color,Urine Yellow; Glucose,Urine (UA) Negative (Negative); Hyaline Casts,Urine 1 /lpf (0-2); Ketones,Urine Trace (Negative); Leukocyte Esterase,Urine Negative (Negative); Mucus,Urine Many /hpf; Nitrite,Urine Negative (Negative); Protein,Urine Trace (Negative); RBC,Urine 1 /hpf (0-5); Specific Gravity,Urine 1.035 (1.001-1.035); Squamous Epithelial Cell,Urine 9 /hpf (0-4); Urobilinogen,Urine <2.0 mg/dL (<2.0); WBC,Urine 1 /hpf (0-5)
[2021-08-08 14:15] LABS: ALT 27 U/L (4-34); AST 23 U/L (14-36); African American GFR (CKD) >90 (>60 ml/min/1.73 sqM); Albumin 4.2 g/dL (3.5-5.0); Alkaline Phosphatase 49 U/L (38-126); Amylase 54 U/L (30-110); Anion Gap 8 mmol/L; Blood Urea Nitrogen 11 mg/dL (7-17); Calcium 9.4 mg/dL (8.4-10.2); Carbon Dioxide 26 mmol/L (22-30); Chloride 104 mmol/L (98-107); Glucose 94 mg/dL (74-99); Lipase 92 U/L (23-300); Non-African American GFR(CKD) >90 (>60 ml/min/1.73 sqM); Sodium 138 mmol/L (137-145); Total Bilirubin 0.6 mg/dL (0.2-1.3); Total Protein 7.1 g/dL (6.3-8.2)
--- NOTE | 2021-08-08 14:26 | ED ---
General Adult HPI - General Chief complaint: Abdominal Pain Stated complaint: abd pain Time Seen by Provider: 08/08/21 12:38 Source: patient Mode of arrival: ambulatory Limitations: no limitations - History of Present Illness Initial comments: 35-year-old female presents to the emergency room for a chief complaint of abdominal pain times several months. Patient states that she been having abdominal pain in the epigastric region for the past few months. States that it worsened after she eats. Patient states that this morning she woke up and was very nauseous. Patient states she tried to back to sleep but did not feel better so came to the emergency room. Patient states she has been evaluated by GI and had both a colonoscopy and an enteroscopy performed a month ago. Patient states the endoscopy did show inflammation although I do not have these results. Patient states she has been taking Bentyl and Pepcid and it doesn't seem to be helping.Patient has no other complaints at this time including shortness of breath, chest pain, nausea or vomiting, headache, or visual changes. - Related Data Home Medications Medication Instructions Recorded Confirmed Ibuprofen [Motrin Ib] 400 mg PO Q12H PRN 12/04/20 12/04/20 Previous Rx's Medication Instructions Recorded Ibuprofen [Motrin] 600 mg PO Q6HR PRN #20 tab 12/04/20 Sulfamethox-Tmp 800-160Mg [Bactrim 1 each PO Q12HR #20 tab 12/04/20 DS 800-160 mg] Ondansetron [Zofran ODT] 4 mg PO Q8HR PRN #15 tab 08/08/21 Sucralfate [Carafate] 1 gm PO ACHS #20 tab 08/08/21 Allergies Allergy/AdvReac Type Severity Reaction Status Date / Time adhesive tape Allergy Rash/Hives Verified 08/08/21 12:35 Review of Systems ROS Statement: Those systems with pertinent positive or pertinent negative responses have been documented in the HPI. ROS Other: All systems not noted in ROS Statement are negative. Past Medical History Past Medical History: GERD/Reflux, Osteoarthritis (OA) Additional Past Medical History / Comment(s): migraines, bowel obstruction, fr equent UTI's, History of Any Multi-Drug Resistant Organisms: None Reported Past Surgical History: Cholecystectomy, Tubal Ligation Additional Past Surgical History / Comment(s): right oopherectomy Past Anesthesia/Blood Transfusion Reactions: No Reported Reaction Past Psychological History: Anxiety, Bipolar Smoking Status: Never smoker Past Alcohol Use History: None Reported Past Drug Use History: None Reported - Past Family History Father Family Medical History: Cancer Mother Family Medical History: Diabetes Mellitus General Exam Limitations: no limitations General appearance: alert, in no apparent distress Head exam: Present: atraumatic Eye exam: Present: normal appearance, PERRL, EOMI. Absent: scleral icterus, conjunctival injection ENT exam: Present: normal exam, mucous membranes moist Neck exam: Present: normal inspection, full ROM. Absent: tenderness Respiratory exam: Present: normal lung sounds bilaterally. Absent: respiratory distress, wheezes Cardiovascular Exam: Present: regular rate, normal rhythm, normal heart sounds GI/Abdominal exam: Present: soft, tenderness (Minimal upper abdominal tenderness noted.), normal bowel sounds. Absent: distended Neurological exam: Present: alert Course Vital Signs 08/08/21 08/08/21 12:31 14:00 Temperature 98.1 F Pulse Rate 72 60 Respiratory 20 18 Rate Blood Pressure 142/87 147/87 O2 Sat by Pulse 96 98 Oximetry Medical Decision Making - Medical Decision Making Vitals are stable. Patient presents for pain that has been ongoing for months. Minimal epigastric tenderness. Patient has had her gallbladder removed. CBC is CMP is unremarkable. Urinalysis does not show any obvious evidence of infection. HCG is negative. I did review CAT scan from April patient was having the same pain and it was unremarkable. At this time patient needs to see GI again and is stable for outpatient follow-up. Pt does feel better after GI cocktail, pepcid, and zofran. We will try to add Zofran and Carafate to her medications of Pepcid and Bentyl to see if this helps as most of her pain is after eating. Return to the ER for any worsening symptoms. - Lab Data Result diagrams: 08/08/21 13:31 08/08/21 13:31 Lab Results 08/08/21 08/08/21 08/08/21 Range/Units 13:31 13:31 13:31 WBC 5.1 (3.8-10.6) k/uL RBC 4.39 (3.80-5.40) m/uL Hgb 13.7 (11.4-16.0) gm/dL Hct 40.1 (34.0-46.0) % MCV 91.3 (80.0-100.0) fL MCH 31.3 (25.0-35.0) pg MCHC 34.3 (31.0-37.0) g/dL RDW 13.4 (11.5-15.5) % Plt Count 245 (150-450) k/uL MPV 7.2 Neutrophils % 63 % Lymphocytes % 28 % Monocytes % 7 % Eosinophils % 0 % Basophils % 0 % Neutrophils # 3.2 (1.3-7.7) k/uL Lymphocytes # 1.4 (1.0-4.8) k/uL Monocytes # 0.4 (0-1.0) k/uL Eosinophils # 0.0 (0-0.7) k/uL Basophils # 0.0 (0-0.2) k/uL Sodium 138 (137-145) mmol/L Potassium 4.0 (3.5-5.1) mmol/L Chloride 104 (98-107) mmol/L Carbon Dioxide 26 (22-30) mmol/L Anion Gap 8 mmol/L BUN 11 (7-17) mg/dL Creatinine 0.59 (0.52-1.04) mg/dL Est GFR (CKD-EPI)AfAm >90 (>60 ml/min/1.73 sqM) Est GFR (CKD-EPI)NonAf >90 (>60 ml/min/1.73 sqM) Glucose 94 (74-99) mg/dL Calcium 9.4 (8.4-10.2) mg/dL Total Bilirubin 0.6 (0.2-1.3) mg/dL AST 23 (14-36) U/L ALT 27 (4-34) U/L Alkaline Phosphatase 49 (38-126) U/L Total Protein 7.1 (6.3-8.2) g/dL Albumin 4.2 (3.5-5.0) g/dL Amylase 54 (30-110) U/L Lipase 92 (23-300) U/L Urine Color Yellow Urine Appearance Cloudy H (Clear) Urine pH 6.0 (5.0-8.0) Ur Specific [place] 1.035 (1.001-1.035) Urine Protein Trace H (Negative) Urine Glucose (UA) Negative (Negative) Urine Ketones Trace H (Negative) Urine Blood Negative (Negative) Urine Nitrite Negative (Negative) Urine Bilirubin Negative (Negative) Urine Urobilinogen <2.0 (<2.0) mg/dL Ur Leukocyte Esterase Negative (Negative) Urine RBC 1 (0-5) /hpf Urine WBC 1 (0-5) /hpf Ur Squamous Epith Cells 9 H (0-4) /hpf Hyaline Casts 1 (0-2) /lpf Urine Mucus Many H (None) /hpf Urine HCG, Qual (Not Detectd) 08/08/21 Range/Units 13:31 WBC (3.8-10.6) k/uL RBC (3.80-5.40) m/uL Hgb (11.4-16.0) gm/dL Hct (34.0-46.0) % MCV (80.0-100.0) fL MCH (25.0-35.0) pg MCHC (31.0-37.0) g/dL RDW (11.5-15.5) % Plt Count (150-450) k/uL MPV Neutrophils % % Lymphocytes % % Monocytes % % Eosinophils % % Basophils % % Neutrophils # (1.3-7.7) k/uL Lymphocytes # (1.0-4.8) k/uL Monocytes # (0-1.0) k/uL Eosinophils # (0-0.7) k/uL Basophils # (0-0.2) k/uL Sodium (137-145) mmol/L Potassium (3.5-5.1) mmol/L Chloride (98-107) mmol/L Carbon Dioxide (22-30) mmol/L Anion Gap mmol/L BUN (7-17) mg/dL Creatinine (0.52-1.04) mg/dL Est GFR (CKD-EPI)AfAm (>60 ml/min/1.73 sqM) Est GFR (CKD-EPI)NonAf (>60 ml/min/1.73 sqM) Glucose (74-99) mg/dL Calcium (8.4-10.2) mg/dL Total Bilirubin (0.2-1.3) mg/dL AST (14-36) U/L ALT (4-34) U/L Alkaline Phosphatase (38-126) U/L Total Protein (6.3-8.2) g/dL Albumin (3.5-5.0) g/dL Amylase (30-110) U/L Lipase (23-300) U/L Urine Color Urine Appearance (Clear) Urine pH (5.0-8.0) Ur Specific [place] (1.001-1.035) Urine Protein (Negative) Urine Glucose (UA) (Negative) Urine Ketones (Negative) Urine Blood (Negative) Urine Nitrite (Negative) Urine Bilirubin (Negative) Urine Urobilinogen (<2.0) mg/dL Ur Leukocyte Esterase (Negative) Urine RBC (0-5) /hpf Urine WBC (0-5) /hpf Ur Squamous Epith Cells (0-4) /hpf Hyaline Casts (0-2) /lpf Urine Mucus (None) /hpf Urine HCG, Qual Not Detected (Not Detectd) Disposition Clinical Impression: Abdominal pain, Nausea Disposition: HOME SELF-CARE Condition: Good Instructions (If sedation given, give patient instructions): Abdominal Pain (ED) Additional Instructions: Please take medications as directed. Please follow-up with your doctor as directed. Return to the emergency room for any worsening symptoms. Prescriptions: Sucralfate [Carafate] 1 gm PO ACHS #20 tab Ondansetron [Zofran ODT] 4 mg PO Q8HR PRN #15 tab PRN Reason: Nausea Is patient prescribed a controlled substance at d/c from ED?: No [facility] - 1-2 days Mary Pike MD [STAFF PHYSICIAN] - 1-2 days Time of Disposition: 14:36
[2021-08-08 14:33] VITALS: BP 147/87; PULSE 60; RESP 18
== END 2021-08-08 15:14 | disposition home or self-care (01) ==
LOC: EC 11:56
DX: R10.13 Epigastric pain (principal); R11.0 Nausea; K21.9 Gastro-esophageal reflux disease without esophagitis; M19.90 Unspecified osteoarthritis, unspecified site; F31.9 Bipolar disorder, unspecified; F41.9 Anxiety disorder, unspecified; Z79.1 Long term (current) use of non-steroidal anti-inflammatories (NSAID); Z79.899 Other long term (current) drug therapy; Z83.3 Family history of diabetes mellitus; Z90.49 Acquired absence of other specified parts of digestive tract
CPT/HCPCS: 36415; 80053; 82150; 83690; 85025; 81001; 81025; 96374; 96375; 96361; 99284; J2405

== ENCOUNTER 2021-08-28 22:29 | Emergency (ER) | payer OTHER ==
[2021-08-28 22:44] VITALS: BP 132/86; PULSE 63; RESP 20; TEMP 98.7
--- NOTE | 2021-08-28 22:57 | ED ---
General Adult HPI - General Chief complaint: Urogenital Stated complaint: Painful Urination Time Seen by Provider: 08/28/21 22:46 Source: patient, family, RN notes reviewed, old records reviewed Mode of arrival: ambulatory Limitations: no limitations - History of Present Illness Initial comments: this is a 36-year-old well-appearing white female that presents to the emergency room with 5 days of burning with urination and abdominal pain. Patient states that she was diagnosed with a stomach ulcer and was told to take antacids however she states that she looked up on home remedies and to try cayenne pepper because the antacids weren't working. She ate jalapeno pepper and that relieves her pain. She states now that she is having burning with urination for the past 5 days she denies any . She states that she had an ablation is not having menstrual periods. She only has one ovary was surgically removed because of an ovarian cyst. She states that she does not have a gallbladder that was also removed. She takes medication for her anxiety and states that she is under a lot of stress as her 18-year-old daughter is and she herself has a 3 year old child. -: days(s) (5) Severity scale (1-10): 10 Quality: burning - Related Data Home Medications Medication Instructions Recorded Confirmed Ibuprofen [Motrin Ib] 400 mg PO Q12H PRN 12/04/20 12/04/20 Previous Rx's Medication Instructions Recorded Ibuprofen [Motrin] 600 mg PO Q6HR PRN #20 tab 12/04/20 Sulfamethox-Tmp 800-160Mg [Bactrim 1 each PO Q12HR #20 tab 12/04/20 DS 800-160 mg] Ondansetron [Zofran ODT] 4 mg PO Q8HR PRN #15 tab 08/08/21 Sucralfate [Carafate] 1 gm PO ACHS #20 tab 08/08/21 Sulfamethox-Tmp 800-160Mg [Bactrim 1 each PO Q12HR 3 Days #6 tab 08/29/21 Ds] Allergies Allergy/AdvReac Type Severity Reaction Status Date / Time adhesive tape Allergy Rash/Hives Verified 08/28/21 22:41 Review of Systems ROS Statement: Those systems with pertinent positive or pertinent negative responses have been documented in the HPI. ROS Other: All systems not noted in ROS Statement are negative. Past Medical History Past Medical History: GERD/Reflux, Osteoarthritis (OA) Additional Past Medical History / Comment(s): migraines, bowel obstruction, frequent UTI's, History of Any Multi-Drug Resistant Organisms: None Reported Past Surgical History: Cholecystectomy, Tubal Ligation Additional Past Surgical History / Comment(s): right oopherectomy Past Anesthesia/Blood Transfusion Reactions: No Reported Reaction Past Psychological History: Anxiety, Bipolar, Depression Smoking Status: Never smoker Past Alcohol Use History: None Reported Past Drug Use History: None Reported - Past Family History Father Family Medical History: Cancer Mother Family Medical History: Diabetes Mellitus General Exam Limitations: no limitations General appearance: alert, in no apparent distress Head exam: Present: atraumatic, normocephalic, normal inspection Eye exam: Present: normal appearance, PERRL, EOMI. Absent: scleral icterus, conjunctival injection, periorbital swelling ENT exam: Present: normal exam, normal oropharynx, mucous membranes moist Neck exam: Present: normal inspection, full ROM. Absent: tenderness, meningismus, lymphadenopathy Respiratory exam: Present: normal lung sounds bilaterally. Absent: respiratory distress, wheezes, rales, rhonchi, stridor, chest wall tenderness, decreased breath sounds Cardiovascular Exam: Present: regular rate, normal rhythm, normal heart sounds. Absent: systolic murmur, diastolic murmur, rubs, gallop, clicks GI/Abdominal exam: Present: soft, normal bowel sounds. Absent: distended, tenderness, guarding, rebound, rigid Extremities exam: Present: normal inspection, full ROM, normal capillary refill. Absent: tenderness, pedal edema, joint swelling, calf tenderness Back exam: Present: normal inspection, full ROM. Absent: CVA tenderness (R) Neurological exam: Present: alert, oriented X3 Psychiatric exam: Present: normal affect, normal mood Skin exam: Present: warm, dry, intact, normal color. Absent: rash, cyanosis, diaphoretic, petechiae, pallor Course Vital Signs 08/28/21 22:42 Temperature 98.7 F Pulse Rate 63 Respiratory 20 Rate Blood Pressure 132/86 O2 Sat by Pulse 97 Oximetry Medical Decision Making - Medical Decision Making patient was directed not to eat jalapeno or spicy foods which may exacerbate her abdominal pain in her stomach ulcer. Her UA is negative for signs of urinary tract infection however based on her complaints of dysuria and statement that this is how her urinary tract infection start, she was prescribed Bactrim for 3 days. I did direct her to follow up with her primary care doctor in 1 week. - Lab Data Lab Results 08/28/21 08/28/21 Range/Units 23:35 23:35 Urine Color Yellow Urine Appearance Clear (Clear) Urine pH 7.0 (5.0-8.0) Ur Specific [place] 1.017 (1.001-1.035) Urine Protein Negative (Negative) Urine Glucose (UA) Negative (Negative) Urine Ketones Negative (Negative) Urine Blood Negative (Negative) Urine Nitrite Negative (Negative) Urine Bilirubin Negative (Negative) Urine Urobilinogen <2.0 (<2.0) mg/dL Ur Leukocyte Esterase Negative (Negative) Urine HCG, Qual Not Detected (Not Detectd) Disposition Clinical Impression: Dysuria Disposition: HOME SELF-CARE Condition: Good Additional Instructions: increase your fluid intake, take medication as prescribed, follow-up with the primary care doctor in 1 week. Prescriptions: Sulfamethox-Tmp 800-160Mg [Bactrim Ds] 1 each PO Q12HR 3 Days #6 tab Is patient prescribed a controlled substance at d/c from ED?: No [facility] - 1-2 days Time of Disposition: 00:11
[2021-08-28 23:51] LABS: Appearance,Urine Clear (Clear); Bilirubin,Urine Negative (Negative); Blood,Urine Negative (Negative); Color,Urine Yellow; Glucose,Urine (UA) Negative (Negative); Ketones,Urine Negative (Negative); Leukocyte Esterase,Urine Negative (Negative); Nitrite,Urine Negative (Negative); Protein,Urine Negative (Negative); Specific Gravity,Urine 1.017 (1.001-1.035); Urobilinogen,Urine <2.0 mg/dL (<2.0)
[2021-08-29] MEDS ORDERED: SULFAMETHOX-TMP 800-160MG 1 EACH TAB PO STA (00:28)
== END 2021-08-29 00:33 | disposition home or self-care (01) ==
LOC: EC 22:29
DX: R30.0 Dysuria (principal); K21.9 Gastro-esophageal reflux disease without esophagitis; M19.90 Unspecified osteoarthritis, unspecified site; F31.9 Bipolar disorder, unspecified; F41.9 Anxiety disorder, unspecified; Z79.1 Long term (current) use of non-steroidal anti-inflammatories (NSAID); Z79.899 Other long term (current) drug therapy; Z83.3 Family history of diabetes mellitus; Z90.49 Acquired absence of other specified parts of digestive tract; Z90.721 Acquired absence of ovaries, unilateral
CPT/HCPCS: 81003; 81025; 99284